=== PATIENT | female | born 1990 | race Caucasian/White ===

== ENCOUNTER 2018-07-13 06:00 | Inpatient (IN) ==
[2018-07-13] MEDS ORDERED: CALCIUM CARBONATE Chewable 500mg TABLET PO PRN ×2 (06:06→15:06)
[2018-07-13] MEDS ORDERED: SALINE FLUSH 10ml SYRINGE IV PRN (06:06)
[2018-07-13] MEDS ORDERED: OXYTOCIN DRIP 30 UNIT/500 ML ML IV PRN (06:06)
[2018-07-13] MEDS ORDERED: METHYLERGONOVINE 0.2 MG/ML INJECTION IM PRN (06:06)
[2018-07-13] MEDS ORDERED: MAG-AL + SIM ORAL LIQUID 30ml PO PRN ×2 (06:06→15:06)
[2018-07-13] MEDS ORDERED: CARBOPROST 250 MCG/ML INJECTION IM PRN (06:06)
[2018-07-13] MEDS ORDERED: D5LR 1,000 ML IV PRN (06:06)
[2018-07-13] MEDS ORDERED: LIDOCAINE 1% (10mg/ml) 2mL INJ PF SDV ID PRN (06:06)
[2018-07-13] MEDS ORDERED: ACETAMINOPHEN 500 MG TABLET PO PRN (06:06)
--- OUTSIDE RECORDS SUMMARY | 2018-07-13 06:14 | External Medical Summary | Continuity of Care Document ---
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 exam (general) - (routine) w/o 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 Abnormal glucose complicating - Encounter for suprvsn of normal - , third trimester 30 weeks gestation of - Encntr screen for infections w sexl - mode of transmiss Encounter for screening for oth - infec/parastc diseases Encounter for suprvsn of normal - , first trimester Encounter For Other Specified - Screening 10 weeks gestation of - Supervision of other high risk - pregnancies, second trimester Partial Placenta Previa Nos Or W/out - Hemorrhage, Second Trimester 24 weeks gestation of - Partial Placenta Previa Nos Or W/out - Hemorrhage, Second Trimester 28 weeks gestation of - Partial Placenta Previa Nos Or W/out - Hemorrhage, Second Trimester Encounter for suprvsn of normal - , second trimester 20 weeks gestation of - Abnormal glucose complicating - Encounter for suprvsn of normal - , third trimester 32 weeks gestation of - Abnormal glucose complicating - Pap Smear Screening, Cervix - Encounter for removal of intrauterine - contraceptive device Encounter for insertion of intrauterine contraceptive device Encounter for insertion of - intrauterine contraceptive device Encounter for routine checking of intrauterine contracep dev Encounter for routine checking of intrauterine contracep dev Encounter for suprvsn of normal - , second trimester 14 weeks gestation of - Encounter for suprvsn of normal - , second trimester 20 weeks gestation of - Encounter for suprvsn of normal - , third trimester 28 weeks gestation of - Dysuria - Active Active Procedures Procedure Date OB Visit No Charge Results Test Name Date and Time Measure Units Reference Range Abnormal Flag Comments Unknown Advance Directives Directive Yes / No Effective Date File Name Unknown Encounters Encounter Practice Location Reason(s) Diagnoses Date Provider Care Team Description For Visit Members [facility] Abnormal glucose Merritt Referring In Womens complicating 9-201 Stella. Provider: judi KhalilEncadria 8 700 Stella [address] r for suprvsn of Medical Merritt L, 1522, normal , Center [address] [place] [address], third [id number] Vel Kauffman, weeks gestation 120, [place] [id number], of Kulwinder [facility] 120, [place] Kulwinder COOL, tel:[phone], [facility] , [place]. [id number]. tel: tel:[phone] [facility] Abnormal glucose Merritt Referring In Womens complicating 5-201 Stella. Provider: judi hKalilEncadria 8 700 Stella PO Box r for suprvsn of Medical Merritt L, 1522, normal , Center [address] [place], third [id number] Vel Kauffman, weeks gestation 120, [place] [id number], of Kulwinder [facility] 120, [place] Kulwinder COOL, tel:+ [phone] [place], , [place]. [id number]. tel: tel:[phone] [facility] Abnormal glucose Pradip-1 Merritt Referring In Womens complicating 3-201 Stella. Provider: Health CHAMP, 8 700 Stella PO Box Medical Merritt L, 1522, Center [facility] [place], , [facility] [place], 120, Center [id number], Kulwinder, [facility] 120, [place] Kulwinder CO[place], tel:[phone], , [place]. [id number]. tel: tel:[phone] Emilie Miramontes Encounter for Pradip-1 Merritt Referring In Womens suprvsn of normal 1-201 Stella. Provider: Health CHAMP, , third 8 700 Stella PO Box [email or web address] weeks Medical Merritt L, 1522, gestation of Center [address] [place] [address], [address], 120, Center [id number], Kulwinder [facility] 120, [place] Kulwinder COOL, tel:+ [phone] CT, , [place]. [id number]. tel: tel:[phone] Emilie Miramontes Partial Placenta Pradip-1 Merritt Referring In Womens Ultrasound Previa Nos Or 1-201 Stella. Provider: Health CHAMP, W/out Hemorrhage, 8 700 Stella PO Box Second Medical Merritt L, 1522, [id number] weeks Center [address] [place] [address], gestation of , Vel COOL, 120, Center [id number], Kulwinder [facility] 120, [place] Kulwinder COOL, tel:+ [phone] [place], , [place]. [id number]. tel: tel:[phone] Emilie Miramontes Supervision of March- Merritt Referring In Womens other high risk 8-201 Stella. Provider: Health CHAMP, pregnancies, 8 700 Stella PO Box second Medical Merritt L, 1522, trimesterPartial Center [address] [place], [place] [address]ta, Placenta Previa Vel Kauffman, Nos Or W/out 120, Center [id number], Hemorrhage, Kulwinder, [facility] 120, [place] Second Kulwinder COOL, tel:+ [phone] CT, gestation of , [place]. [id number]. tel: tel:[phone] Emilie Miramontes Partial Placenta Apr-1 Merritt Referring In Womens Previa Nos Or 6-201 Stella. Provider: Jose OAKES, W/out Hemorrhage, 8 700 Stella PO Box Second Medical Merritt L, 1522, TrimesterEncounte Center [address] [place] [address], r for suprvsn of Vel Kauffman, normal , 120, Center [id number], second Miramontes, [facility] 120, [place] [email or web address] weeks Kulwinder COOL, tel: gestation of [phone] CT, , [place]. [id number]. tel: tel:[phone] Emilie Miramontes Encounter for Apr-1 Merritt Referring In Womens Ultrasound suprvsn of normal 6-201 Stella. Provider: Jose OAKES, , second 8 700 Stella PO Box [email or web address] weeks Medical Merritt L, 1522, gestation of Center [address] [place] [address], [address], 120, [place] [id number], [facility], [place] Kulwinder COOL, tel:[phone] CT, , [place]. [id number]. tel: tel:[phone] Emilie Miramontes Encounter for Mar-0 Merritt Referring In Womens suprvsn of normal 5-201 Stella. Provider: Jose OAKES, , second 8 700 Stella PO Box [email or web address] weeks Medical Merritt L, 1522, gestation of Center [address] [place] [address], Vel Kauffman, 120, [place] [id number], Kulwinder [facility] 120, [place] Kulwinder COOL, tel:[phone] CT, , [place]. [id number]. tel: tel:[phone] Emilie Miramontes Encntr screen for Feb-0 Merritt Referring In Womens infections w sexl 5-201 Stella. Provider: Jose OAKES, mode of 8 700 Stella PO Box transmissEncounte Medical Merritt L, 1522, r for screening Center [address] [place] [address], for oth , [facility], infec/parastc 120, Center [id number], diseasesEncounter Kulwinder, [facility] 120, [place] for suprvsn of Kulwinder COOL, tel:[phone] normal , [phone] CT, first , [place]. [id number]. 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 Provider: Health PA, (routine) w/o abn 7 700 Stella PO Box findingsPap Smear Medical Merritt L, 1522, Screening, Center [address] [place] [address], CervixEnccassieer , [facility], for removal of 120, Center , [facility]ine [facility], [place] contraceptive Kulwinder COOL, tel:+ [phone] CT, , [place]. [id number]. tel: tel:[phone] Emilie Miramontes Encounter for Aug-2 Merritt Referring In Womens routine checking 6-201 Stella. Provider: Health CHAMP, of intrauterine 6 700 Stella PO Box contracep dev [place] Bang L, 1522, Center [facility] [address], [facility], 120, Center [id number], [facility] 120, [place] Kulwinder COOL, tel:+ [phone] [place], , [place]. [id number]. tel: tel:[phone] Emilie Miramontes Encounter for Mar-2 Liang Referring In Womens routine checking 8-201 Elina. Provider: Health CHAMP, of intrauterine 6 700 Stella PO Box contracep dev Sweet[place] Bang L, 1522, Center [facility] [address], [facility], 120, Center [id number] [facility] 120, [place] Kulwinder COOL, tel:[phone], , [place]. [id number]. tel: tel:[phone] Miramontes Encounter for Mar-2 Liang Referring In Womens Ultrasound insertion of 8-201 Elina. Provider: Jose OAKES, intrauterine 6 700 Stella PO Box contraceptive Medical Merritt L, 1522, device Center [address], [facility] [place], 120, Center [id number], Kulwinder, [facility] 120, [place] Kulwinder COOL, tel:[phone] [place], , [place]. [id number]. tel: tel:[phone] Emilie Miramontes Encounter for Mar-2 Liang Referring In Womens insertion of 2-201 Elina. Provider: Jose OAKES, intrauterine 6 700 Stella PO Box contraceptive Medical Merritt L, 1522, device Center [facility] [address], [facility] [place], 120, Center [id number], Kulwinder, [facility] 120, [place] Kulwinder COOL, tel:[phone], , [place]. [id number]. tel: tel:[phone] Miramontes Dec-2 Merritt Referring In Womens 5-201 Stella. Provider: Jose OAKES, 5 700 Stella PO Box Medical Merritt L, 1522, Center [address], [facility] [place], 120, Center [id number], Kulwinder, [facility] 120, [place] Kulwinder COOL, tel:[phone], , [place]. [id number]. tel: tel:[phone] Miramontes Aug- Merritt Referring In Womens 4-201 Stella. Provider: Jose OAKES, 4 700 Stella PO Box Medical Merritt L, 1522, Center [address], [facility] [place], 120, Center [id number], Kulwinder, [facility] 120, [place] Kulwinder COOL, tel:[phone], , [place]. [id number]. tel: tel:[phone] Miramontes Aug-0 Liang In Womens 1-200 Elina. Jose OAKES, 8 700 PO Box Medical 1522, Center Dr Wai, [facility] [place], 120, [id number] Ramirez, [place], tel:[phone] , . tel:[phone] Family History Family Member Diagnosis Age At Onset No family history of Epilepsy No family history of Osteoporosis No family history of Hypertension No family history of Breast Cancer No family history of Ovarian Cancer No family history of Cardiovascular Disease No family history of Lung Disease No family history of Colon Cancer No family history of Kidney Problems No family history of Stroke No family history of Diabetes No family history of Thyroid Disorder Immunizations Vaccine Date Status Comments Tdap completed Source: New Immunization Record Influenza, seasonal, injectable, completed Source: New Immunization Record preservative free, 3 yrs or older Payers Payer name Insurance type Covered libertarian ID Authorization(s) [facility] [id number] [facility] [id number] [facility] [id number] Social History Type Description Quantity Date Captured Alcohol Use Details No Caffeine Use Details Unknown Tobacco Use Status Unknown Smoking Status Never smoker Vital Signs Date / Height Weight BMI Pulse Blood Temperature Respiratory Body Head BMI Time: Rate Pressure Rate Surface Circumference percentile Area 169.30 28.1 / lbs 7 mm[Hg] 1:36 kg/m PM eter (2) Chief Complaint And Reason For Visit Unknown Chief Complaint And Reason For Visit Reason For Referral Reason For Referral Unknown Plan Of Care Date Type Action Status Appointment Jaqueline Flannery BOOKED Future Order: Radiology Order Ultrasound OB Follow-up ([id number]) Ordered Future Order: Radiology Order Pelvic Ultrasound ([id number]) Ordered Future Order: Radiology Order Complete OB Ultrasound > 14 Weeks Ordered ([id number]) Date Type Problem Goal Intervention Status Start Date Unknown. History Of Present Illness Encounter Date Complaint History Of Present Illness This patient has no known history of present illness Functional Status Encounter Date Functional Assessment Cognitive Assessment Unknown Medications Administered Medication Instructions Dosage Effective Dates (start - stop) Status Comments Drug Treatment Unknown Instructions Date Instruction Additional Information smoking counseling domestic violence seat belt use childbirth classes / hospital facilities hospital registration genetic testing Zika virus assessment & precautions HIV and other routine tests risk factors identified by history anticipated course of care nutrition and weight gain counseling, special diet toxoplasmosis precautions (cats / raw meat) sexual activity exercise indications for ultrasound influenza vaccine environmental / work hazards travel tobacco (ask, advise, assess, assist and arrange) alcohol illicit / recreational drugs use of any medications (including supplements, vitamins, herbs, OTC drugs)
--- OUTSIDE RECORDS SUMMARY | 2018-07-13 06:14 | External Medical Summary | Summary of Care ---
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 Quantity: 1 Refills: 0 Taty Powell APRN Start : 05-Jul-2017 Active 15 GM Tube Allergies and Adverse Reactions Name Dates Details No Known Drug Allergies (Allergy) Status: Active Procedures Procedure Dates Details Procedures not documented Immunization Name Dates Details Immunizations not documented Social History Smoking Status Name Dates Details Unknown if ever smoked Vital Signs Date Test Result Details No Known Vitals to report Results Date Description Value Details Results not documented Plan of Care Name Dates Details Planned Observations Planned Goals not documented Interventions Provided Medication ChangesPredniSONE 20 MG Oral Tablet - StartTriamcinolone Acetonide 0.5 % External Cream - Start Instructions Name Dates Details Instructions not documented Encounters Appointment; Taty Powell A.P.R.N. On: 05-Jul-2017 10:19 Encounter Diagnosis: Problem not documented
--- OUTSIDE RECORDS SUMMARY | 2018-07-13 06:14 | External Medical Summary | Continuity of Care Document ---
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 Provider: [facility] 8 700 Stella PO Box r for suprvsn of Medical [facility], 152, normal , [address], third [id number] Dr [facility], weeks gestation 120, Center [id number], [facility] 120, [place] Kulwinder COOL, tel:[phone] [place], [address] , [place]. [id number]. tel: tel:[phone] Emilie Miramontes Abnormal glucose Merritt Referring In Womens complicating 9-201 Stella. Provider: Jose [facility]AKES [facility] 8 700 Stella PO Box r for suprvsn of Medical [facility] L, 1522, normal , Center [address] [place], third [id number] Dr [facility] Sweetie COOL, weeks gestation 120, Center [id number], of [place], [facility] 120, [place] Kulwinder [place], tel:[phone] [place], , [place]. [id number]. tel: tel:[phone] Associates Kulwinder Abnormal glucose Pradip-2 Merritt Referring In Womens complicating 5-201 Stella. Provider: Jose OAKES, pregnancyEncounte 8 700 Stella PO Box r for suprvsn of Medical [place] L, 1522, normal , Center 700 [place], third [id number] Vel Kauffman, weeks gestation 120, [place] , of [place], [facility] 120, [place] K[place]winder [place], tel:[phone] [place], , [place]. [id number]. tel: tel:[phone] Associates ISIDORO Avila Abnormal glucose Pradip-1 Merritt Referring In Womens complicating 3-201 Stella. Provider: Jose OAKES, 8 700 Stella PO Box Medical [place] L, 1522, Center [facility] Wai, Dr Vel Sweetie [place], 120, [place] [id number], Kulwinder, [facility] 120, [place]inder [place], tel:[phone] [place], , [place]. [id number]. tel: tel:[phone] Emilie Miramontes Encounter for Pradip-1 Merritt Referring In Womens suprvsn of normal 1-201 Stella. Provider: Jose OAKES, , third 8 700 Stella PO Box [id number] weeks Medical [place] L, 1522, gestation of Center [address] [place], Vel [place]ffman [place], 120, [place] [id number], Kulwinder, [facility] 120, [place]inder [place], tel:[phone] [place], , [place]. [id number]. tel: tel:[phone] Emilie Miramontes Partial Placenta Pradip-1 Merritt Referring In Womens Ultrasound Previa Nos Or 1-201 Stella. Provider: Jose OAKES, W/out Hemorrhage, 8 700 Stella PO Box Second Medical [place] L, 1522, [id number] weeks [facility], gestation of Vel [place]ff[place], 120, Center [id number], Kulwinder [facility] 120, [place] K[place]inder [place], tel:[phone] [place], , [place]. [id number]. tel: tel:[phone] Emilie Miramontes Supervision of March- Merritt Referring In Womens other high risk 8-201 Stella. Provider: Health PA, pregnancies, 8 700 Stella PO Box second Medical [place] L, 1522, trimesterPartial Center [address] [place] [address], Placenta Previa Vel Kauffman, Nos Or W/out 120, Center [id number], Hemorrhage, Kulwinder [facility] 120, [place] Second Kulwinder COOL, tel:+ [id number] weeks [phone] [place], gestation of , [place]. [id number]. tel: tel:[phone] Emilie Miramontes Partial Placenta Feb-1 Merritt Referring In Womens Previa Nos Or 6-201 Stella. Provider: Health PA, W/out Hemorrhage, 8 700 Stella PO Box Second Medical [place] L, 1522, TrimesterEncounte Center [address] [place] [address], r for suprvsn of Vel Kauffman, normal , 120, Center [id number], second Vel [place] 120, [place] [id number] weeks Kulwinder COOL, tel:+ gestation of [phone] [place], , [place]. [id number]. tel: tel:[phone] Emilie Miramontes Encounter for Apr-1 Merritt Referring In Womens Ultrasound suprvsn of normal 6-201 Stella. Provider: Health PA, , second 8 700 Stella PO Box [id number] weeks Medical [place] L, 1522, gestation of Center [address] [place] [address], Vel Kauffman, 120, Center [id number], Kulwinder [facility] 120, [place] Kulwinder [place], tel:[phone] [place], , [place]. [id number]. tel: tel:[phone] Emilie Miramontes Encounter for Mar-0 Merritt Referring In Womens suprvsn of normal 5-201 Stella. Provider: Jose OAKES, , second 8 700 Stella PO Box weeks Sweetie Wright, 1522, gestation of Center [address] [place] [address], Dr, [facility], 120, Center [id number], [facility] 120, [place] K[place]inder [place], tel:[phone] [place], , [place]. [id number]. tel: tel:[phone] Emilie Miramontes Encntr screen for Feb-0 Merritt Referring In Womens infections w sexl 5-201 Stella. Provider: Jose OAKES, mode of 8 700 Stella PO Box transmissEncounte Sweetie Bang L, 1522, r for screening Center [address] [place] [address], for oth , [facility], infec/parastc 120, [place] [id number], diseasesEncounter [facility], [place] for suprvsn of Kulwinder COOL, tel:[phone] normal , [phone] [place], first , [place]. [id number]. 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 Provider: Jose OAKES, (routine) w/o abn 7 700 Stella PO Box findingsPap Smear Sweetie Wright, 1522, Screening, [address], CervixEncounter , [facility], for removal of 120, [place] [id number], [facility]uterine [facility] 120, [place] contraceptive Kulwinder COOL, tel:[phone] [place], , [place]. [id number]. tel: tel:[phone] Emilie Miramontes Encounter for Aug-2 Merritt Referring In Womens routine checking 6-201 Stella. Provider: Jose OAKES, of intrauterine 6 700 Stella PO Box contracep dev Sweetie Wright, 1522, Center [facility] Wai, , Vel Medical [place], 120, Center [id number], Kulwinder, [facility] 120, [place] Kulwinder [place], tel:[phone] [place], , [place]. [id number]. tel: tel:[phone] Emilie Miramontes Encounter for Mar-2 Liang Referring In Womens routine checking 8-201 Elina. Provider: Jose OAKES, of intrauterine 6 700 Stella PO Box contracep dev Medical [place] L, 1522, Center [address], [facility] [place], 120, Center [id number], Kulwinder, [facility] 120, [place] Kulwinder [place], tel:[phone] [place], , [place]. [id number]. tel: tel:[phone] Miramontes Encounter for Mar-2 Liang Referring In Womens Ultrasound insertion of 8-201 Elina. Provider: Jose OAKES, intrauterine 6 700 Stella PO Box contraceptive Medical [place] L, 1522, device Center [address] Dr Wai, [facility] [place], 120, Center [id number], Kulwinder, [facility] 120, [place] Kulwinder [place], tel:[phone] [place], , [place]. [id number]. tel: tel:[phone] Miramontes Encounter for Mar-2 Liang Referring In Womens insertion of 2-201 Elina. Provider: Jose OAKES, intrauterine 6 700 Stella PO Box contraceptive Medical [place] L, 1522, device Center [address] Dr Wai, [facility] [place], 120, Center [id number], Kulwinder, [facility] 120, [place] Kulwinder [place], tel:[phone] [place], , [place]. [id number]. tel: tel:[phone] Miramontes Feb-2 Merritt Referring In Womens 5-201 Stella. Provider: Jose OAKES, 5 700 Stella PO Box Medical [place] L, 1522, Center [address], [facility] [place], 120, Center [id number], Kulwinder, [facility] 120, [place] Kulwinder [place], tel:[phone] [place], , [place]. [id number]. tel: tel: [phone] Associates Kulwinder Merritt Referring In Womens 4-201 Stella. Provider: Health CHAMP, 4 700 Stella PO Box Medical [place] L, 1522, Center [address] Dr Wai, [facility] Medical [place], 120, [place] [id number], [place], [place] [address], [place], Kulwinder, tel: [phone] [place], [facility]. [id number]. tel: tel:+ [phone] Emilie Miramontes Jun-0 Liang In Womens 1-200 Elina. [facility], 8 700 PO Box Medical 1522, [place] Dr Wai, [facility] [place], 120, [id number], [place], [place], tel: [phone] , . tel: [phone] Family History Family Member Diagnosis Age At [...] older Payers Payer name Insurance type Covered green party ID Authorization(s) [facility] [id number] [facility] [id number] [facility] [id number] Social History Type Description Quantity Date Captured Alcohol Use Details No Caffeine Use Details Unknown Tobacco Use Status Unknown Smoking Status Never smoker Vital Signs Date / Height Weight BMI Pulse Blood Temperature Respiratory Body Head BMI Time: Rate Pressure Rate Surface Circumference percentile Area 173.70 28.9 110/65 -2018 lbs 0 mm[Hg] 3:21 kg/m PM eter (2) 28. 7 3:05 kg/m PM eter (2) 173.70 lbs 0 3:20 kg/m PM eter (2) Chief Complaint And Reason For Visit Unknown Chief Complaint And Reason For Visit Reason For Referral Reason For Referral Unknown Plan Of Care Date Type Action Status Appointment Jaqueline Flannery BOOKED Future Order: Radiology Order Ultrasound OB Follow-up ([id number]) Ordered Future Order: Radiology Order Pelvic Ultrasound ([id number]) Ordered Future Order: Radiology Order Complete OB Ultrasound > 14 Weeks Ordered ([id number]) Date Type Problem Goal Intervention Status Start [...]
--- OUTSIDE RECORDS SUMMARY | 2018-07-13 06:14 | External Medical Summary | Continuity of Care Document ---
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 Abnormal glucose complicating - Encounter for suprvsn of normal - , third trimester 34 weeks gestation of - Encntr screen for [...] suprvsn of normal - , third trimester 37 weeks gestation of - Abnormal glucose complicating - Encounter for suprvsn of normal - , third trimester 30 weeks gestation of - Abnormal glucose complicating - Encounter for suprvsn of normal - , third trimester 32 weeks gestation of - Abnormal glucose complicating - Abnormal glucose complicating - Encounter for suprvsn of normal - , third trimester Encounter For Screening For - Streptococcus B 36 weeks gestation of - Pap Smear Screening, [...] Womens complicating 3-201 Stella. Provider: Health CHAMP, pregnancyEncounte 8 700 Stella PO Box r for suprvsn of Medical [place] L, 1522, normal , Center 700 [place], third [id number] Vel Kauffman Medical [place], weeks gestation 120, Center [id number], of Kulwinder, [facility] 120, [place] Kulwinder COOL, tel:[phone] [place], , [place]. [id number]. tel: tel:[phone] Associates K[facility]inder Abnormal glucose Aug-0 Merritt Referring In Womens complicating 6-201 Stella. Provider: Jose OAKES pregnancyEncounte 8 700 Stella PO Box r for suprvsn of Medical [place] L, 1522, normal , Center 700 [place], third Dr [facility] [place], trimesterEncounte 120, Center [id number], r For [facility] 120, [place] Screening For Kulwinder COOL, tel:+ [phone] [place], weeks gestation , [place]. [id number]. of tel: tel:[phone] Associates Kul[facility]inder Abnormal glucose Dinh-2 Merritt Referring In Womens complicating 3-201 Stella. Provider: [facility] 8 700 Stella PO Box r for suprvsn of Medical [place] L, 1522, normal , Center [address] [place] [address], third [id number] Dr [facility] [place], weeks gestation 120, Center [id number], of [facility] 120, [place] Kulwinder COOL, tel:[phone] [place], , [place]. [id number]. tel: tel:[phone] Associates Kulwinder Abnormal glucose Dinh-0 Merritt Referring In Womens complicating 9-201 Stella. Provider: Jose OAKES pregnancyEncounte 8 700 Stella PO Box r for suprvsn of Medical [place] L, 1522, normal , Center [address] [place] [address], third [id number] Dr [facility] Sweetie COOL, weeks gestation 120, Center [id number], of [facility] 120, [place] Kulwinder CO[place], tel:[phone] [place], , [place]. [id number]. tel: tel:[phone] Associates K[facility]winder Abnormal glucose Pradip-2 Merritt Referring In Womens complicating 5-201 Stella. Provider: Jose OAKES pregnancyEncounte 8 700 Stella PO Box r for suprvsn of Medical [place] L, 1522, normal , Center [address] [place] [address], third [id number] Dr [facility] [place], weeks gestation 120, Center , of Kulwinder [facility] 120, [place] Kulwinder COOL, tel:+ [phone] [place], , [place]. [id number]. tel: tel:[phone] Associates MAHENDRA [place] Abnormal glucose Pradip-1 Merritt Referring In Womens complicating 3-201 Stella. Provider: Jose OAKES, 8 700 Stella PO Box Medical [place] L, 1522, Center [address] [place] [address], , [facility] [place], 120, Center [id number], Kulwinder [facility] 120, [place] Kulwinder CO[place], tel:[phone] [place], , [place]. [id number]. tel: tel:[phone] Emilie Miramontes Encounter for Pradip-1 Merritt Referring In Womens suprvsn of normal 1-201 Stella. Provider: Jose OAKES, , third 8 700 Stella PO Box [id number] weeks Medical [place] L, 1522, gestation of Center [address] [place] [address], Dr [facility] [place], 120, [place] [id number], Kulwinder [facility] 120, [place] Kulwinder CO[place], tel: [phone] [place], , [place]. [id number]. tel: tel:[phone] Emilie Miramontes Partial Placenta Pradip-1 Merritt Referring In Womens Ultrasound Previa Nos Or 1-201 Stella. Provider: Jose OAKES, W/out Hemorrhage, 8 700 Stella PO Box Second Medical [place] L, 1522, [id number] weeks Center [address] [place] [address], gestation of Vel Kauffman, 120, Center [id number], Kulwinder [facility] 120, [place] Kulwinder COOL, tel: [phone] [place], , [place]. [id number]. tel: tel:[phone] Emilie Miramontes Supervision of March- Merritt Referring In Womens other high risk 8-201 Stella. Provider: Jose OAKES, pregnancies, 8 700 Stella PO Box second Medical [place] L, 1522, trimesterPartial Center [address] [place] [address], Placenta Previa Vel Kauffman, Nos Or W/out 120, Center [id number], Hemorrhage, Kulwinder [facility] 120, [place] Second Kulwinder COOL, tel:+[phone] [id number] weeks [phone] [place], gestation of , [place]. [id number]. tel: tel:[phone] Emilie Miramontes Partial Placenta Apr-1 Merritt Referring In Womens Previa Nos Or 6-201 Stella. Provider: Health CHAMP, W/out Hemorrhage, 8 700 Stella PO Box Second Medical [place] L, 1522, TrimesterEncounte Center [address] [place] [address], r for suprvsn of Vel K[place], normal , 120, Center [id number], second Kulwinder [facility] 120, US [id number] weeks Kulwinder COOL, tel:+ gestation of [place], , [place]. [id number]. tel: tel:[phone] Emilie Miramontes Encounter for Apr-1 Merritt Referring In Womens Ultrasound suprvsn of normal 6-201 Stella. Provider: Jose OAKES, , second 8 700 Stella PO Box [id number] weeks Medical Merr[place] L, 1522, gestation of [address], Vel Kauffman, 120, Center [id number], Kulwinder [facility] 120, [place] Kulwinder COOL, tel:[phone] [place], , [place]. [id number]. tel: tel:[phone] Emilie Miramontes Encounter for Mar-0 Merritt Referring In Womens suprvsn of normal 5-201 Stella. Provider: Health CHAMP, , second 8 700 Stella PO Box [email or web address] weeks Medical [place] L, 1522, gestation of [address], Vel Kauffman, 120, Center [id number], Kulwinder [facility] 120, [place] Kulwinder COOL, tel:[phone] [place], , [place]. [id number]. tel: tel:+ [phone] Emilie Miramontes Encntr screen for Feb-0 Merritt Referring In Womens infections w sexl 5-201 Stella. Provider: Jose OAKES, mode of 8 700 Stella PO Box transmissEncounte Medical [place] L, 1522, r for screening Center [address] [place] [address], for oth , [facility], infec/parastc 120, Center [id number], diseasesEncounter Kulwinder, [facility] 120, [place] for suprvsn of Kulwinder COOL, tel:[phone] normal , [phone] [place], first , [place]. [id number]. 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 Provider: Jose OAKES, (routine) w/o abn 7 700 Stella PO Box findingsPap Smear Medical Merritt L, 1522, Screening, Center [address] [place] [address], CervixEncsam Kauffman, [facility], for removal of 120, [place] [id number], intrauterine Kulwinder, [facility] 120, [place] contraceptive Kulwinder COOL, tel: device [phone] [place], , [place]. [id number]. tel: tel:[phone] Emilie Miramontes Encounter for Aug-2 Merritt Referring In Womens routine checking 6-201 Stella. Provider: oJse OAKES, of intrauterine 6 700 Stella PO Box contracep dev Sweetie Bang L, 1522, Center [address] Dr Wai, [facility], 120, [place] [id number], [facility] 120, [place] Kulwinder CO[place], tel:[phone] [place], , [place]. [id number]. tel: tel:[phone] Emilie Miramontes Encounter for Mar-2 Liang Referring In Womens routine checking 8-201 Elina. Provider: Jose OAKES, of intrauterine 6 700 Stella PO Box contracep dev Sweetie Wright, 1522, Center [facility] Dr Wai, [facility], 120, [place] [id number], [facility] 120, [place] Kulwinder COOL, tel:[phone] [place], , [place]. [id number]. tel: tel:[phone] Emilie Miramontes Encounter for Mar-2 Liang Referring In Womens Ultrasound insertion of 8-201 Elina. Provider: Health CHAMP, intrauterine 6 700 Stella PO Box contraceptive Medical [place] L, 1522, device Center [address] Dr Wai, [facility] [place], 120, Center [id number], Kulwinder, [facility] 120, [place] Kulwinder COOL, tel:[phone] [place], , [place]. [id number]. tel: tel:[phone] Emilie Miramontes Encounter for Mar-2 Liang Referring In Womens insertion of 2-201 Elina. Provider: Health CHAMP, intrauterine 6 700 Stella PO Box contraceptive Medical [place] L, 1522, device Center [address] Dr Wai, [facility] [place], 120, Center [id number], Kulwinder, [facility] 120, [place] Kulwinder COOL, tel:[phone] [place], , [place]. [id number]. tel: tel:[phone] Emilie Miramontes Dec- Merritt Referring In Womens 5-201 Stella. Provider: Health CHAMP, 5 700 Stella PO Box Medical [place] L, 1522, Center [address], [facility] [place], 120, Center [id number], Kulwinder, [facility] 120, [place] Kulwinder COOL, tel:[phone] [place], , [place]. [id number]. tel: tel:[phone] Emilie Miramontes Aug- Merritt Referring In Womens 4-201 Stella. Provider: Health CHAMP, 4 700 Stella PO Box Medical [place] L, 1522, Center [address], [facility] [place], 120, Center [id number], Kulwinder, [facility] 120, [place] Kulwinder COOL, tel:[phone] [place], , [place]. [id number]. tel: tel:[phone] Emilie Miramontes Liang In Womens 1-200 [facility], 8 700 [facility] 1522, [place] [address] [place], [facility] [place], 120, [id number], [place], [place], tel:[phone] , [place]. tel: [phone] Family History Family Member Diagnosis Age At [...] Comments Tdap completed Source: New Immunization Record Tdap completed Source: New Immunization Record Influenza, seasonal, injectable, completed Source: New Immunization Record preservative free, 3 yrs or older Payers Payer name Insurance type Covered libertarian ID Authorization(s) [facility] [id number] [facility] [id number] [facility] [id number] [facility] [id number] Social History Type Description Quantity Date Captured Alcohol Use Details No Caffeine Use Details Unknown Tobacco Use Status Unknown Smoking Status Never smoker Vital Signs Date / Height Weight BMI Pulse Blood Temperature Respiratory Body Head BMI Time: Rate Pressure Rate Surface Circumference percentile Area 176.10 29.3 131/70 2018 lbs 0 mm[Hg] 3:08 kg/m PM eter (2) Chief Complaint And Reason For Visit Unknown Chief Complaint And Reason For Visit Reason For Referral Reason For Referral Unknown Plan Of Care Date Type Action Status Appointment Jaqueline Flannery BOOKED Future Order: Radiology Order Ultrasound OB Follow-up ([id number]) Ordered Future Order: Radiology Order Pelvic Ultrasound ([id number]) Ordered Future Order: Radiology Order Complete OB Ultrasound > 14 Weeks Ordered ([id number]) Date Type Problem Goal Intervention Status Start [...]
--- OUTSIDE RECORDS SUMMARY | 2018-07-13 06:14 | External Medical Summary | Continuity of Care Document ---
:1990 Author Organization [email or web address] Address [address] [place] [phone] Phone Support Name Relationship Address Phone Serg Flannery spouse [phone] Walsh [phone] [place] [address] Allergies, Adverse Reactions, Alerts Substance Reaction Severity Status No Known Drug Allergies Unknown Active Medications Medication Instructions Dosage Effective Dates Status Comments (start - stop) Vitamin take 1 tablet by Not Available - Active 27 mg iron-0.8 mg oral route every tablet day Problems Condition Effective Dates (start - stop) Clinical Status 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) w/o 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 Encounter for suprvsn of normal - , second trimester 14 weeks gestation of - Encntr screen for infections w sexl - mode of transmiss Encounter for screening for oth - infec/parastc diseases Encounter for suprvsn of normal - , first trimester Encounter For Other Specified - Screening 10 weeks gestation of - Pap Smear Screening, Cervix - Encounter for removal of intrauterine - contraceptive device Encounter for insertion of intrauterine contraceptive device Encounter for insertion of - intrauterine contraceptive device Encounter for routine checking of intrauterine contracep dev Encounter for routine checking of intrauterine contracep dev Dysuria - Active Active Procedures Procedure Date OB Visit No Charge Results Test Name Date and Time Measure Units Reference Range Abnormal Flag Comments Unknown Advance Directives Directive Yes / No Effective Date File Name Unknown Encounters Encounter Practice Location Reason(s) Diagnoses Date Provider Care Team Description For Visit Members Emilie Miramontes Encounter for Mar-0 Merritt Referring In Womens suprvsn of normal 5-201 Stella. Provider: Jose OAKES, , second 8 700 Stella [address] [id number] weeks Medical Merritt Wright, 1522, gestation of Center [address] [place] [address], Dr, [facility], 120, Center [id number], Kulwinder [facility] 120, [place] Kulwinder COOL, tel:[phone] [place], , [place]. [id number]. tel: tel:[phone] Emilie Miramontes Encntr screen for Dec- Merritt Referring In Womens infections w sexl 5-201 Stella. Provider: Jose OAKES, mode of 8 700 Stella PO Box transmissEncounte Sweetie Wright, 1522, r for screening Center [address] [place] [address], for oth , [facility], infec/parastc 120, [place] [id number], diseases[facility], [place] for suprvsn of Kulwinder COOL, tel:[phone] normal , [phone] [place], first , [place]. [id number]. 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 Provider: Jose OAKES, (routine) w/o abn 7 700 Stella PO Box findingsPap Smear Sweetie Bang L, 1522, Screening, [place] [id number] [place], CervixEncsam Kauffman, [facility], for removal of 120, [place] [id number], [facility], [place] contraceptive Kulwinder COOL, tel:[phone] [place], , [place]. [id number]. tel: tel:[phone] Emilie Miramontes Encounter for Jun- Merritt Referring In Womens routine checking 6-201 Stella. Provider: Jose OAKES, of intrauterine 6 700 Stella PO Box contracep dev Sweetie Wright, 1522, Center [facility] [place], , [facility], 120, Center [id number] Ramirez, [facility] 120, [place] Kulwinder [place], tel:[phone] [place], , [place]. [id number]. tel: tel:[phone] Emilie Miramontes Encounter for Mar-2 Liang Referring In Womens routine checking 8-201 Elina. Provider: Jose OAKES, of intrauterine 6 700 Stella PO Box contracep dev Medical Merritt L, 1522, Center [address] [place], [facility] [place], 120, Center [id number], Kulwinder, [facility] 120, [place] Kulwinder [place], tel:[phone] [place], , [place]. [id number]. tel: tel:[phone] Miramontes Encounter for Mar-2 Liang Referring In Womens Ultrasound insertion of 8-201 Elina. Provider: Jose OAKES, intrauterine 6 700 Stella PO Box contraceptive Medical Merritt L, 1522, device Center [address] [place], [facility], 120, Center [id number], [facility], [place] Kulwinder [place], tel:[phone] [place], , [place]. [id number]. tel: tel:[phone] Emilie Miramontes Encounter for Mar-2 Liang Referring In Womens insertion of 2-201 Elina. Provider: Jose OAKES, intrauterine 6 700 Stella PO Box contraceptive Medical Merritt L, 1522, device Center [address] [place], [facility] [place], 120, Center [id number], [facility], [place] Kulwinder [place], tel:[phone] [place], , [place]. [id number]. tel: tel:[phone] Emilie Miramontes Feb-2 Merritt Referring In Womens 5-201 Stella. Provider: Jose OAKES, 5 700 Stella PO Box Medical Merritt L, 1522, Center [address] [place], [facility] [place], 120, Center [id number], Kulwinder, [facility] 120, [place] Kulwinder [place], tel:[phone] [place], , [place]. [id number]. tel:[phone] tel: [phone] Emilie Miramontes Aug- Merritt Referring In Womens 4-201 Stella. Provider: [facility], 4 700 Stella PO Box Medical Merritt L, 1522, Center [address] [place], [facility] Medical [place], 120, [place] [address] [id number], Miramontes, [facility] 120, [place], Kulwinder, tel: [phone] [place], , . [id number]. tel: tel: [phone] Emilie Miramontes Jun-0 Liang In Womens 1-200 Elina. [facility], 8 700 PO Box Medical 1522, [place] [address] [place], [facility] [place], 120, [id number], Miramontes, [place], tel: [phone] , . tel: [phone] Family History Family Member Diagnosis Age At [...] older Payers Payer name Insurance type Covered democrat ID Authorization(s) [facility] [id number] [facility] [id number] [facility] [id number] Social History Type Description Quantity Date Captured Alcohol Use Details No Caffeine Use Details Unknown Tobacco Use Status Unknown Smoking Status Never smoker Vital Signs Date / Height Weight BMI Pulse Blood Temperature Respiratory Body Head BMI Time: Rate Pressure Rate Surface Circumference percentile Area Unknown Chief Complaint And Reason For Visit Unknown Chief Complaint And Reason For Visit Reason For Referral Reason For Referral Unknown Plan Of Care Date Type Action Status Appointment Jaqueline Flannery BOOKED Appointment Jaqueline Flannery BOOKED Future Order: Radiology Order Pelvic Ultrasound ([id number]) Ordered Date Type Problem Goal Intervention Status Start [...]
--- OUTSIDE RECORDS SUMMARY | 2018-07-13 06:15 | External Medical Summary | Continuity of Care Document ---
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0-46.6 11:27:00 MCV 87 fL 79-97 11:27:00 MCH 28.7 pg 26.6-33.0 11:27:00 MCHC 33.1 g/dL 31.5-35.7 11:27:00 RDW 14.7 % 12.3-15.4 11:27:00 Platelets 210 x10E3/uL 150-379 11:27:00 Neutrophils 74 % Not Estab. 11:27:00 Lymphs 17 % Not Estab. 11:27:00 Monocytes 5 % Not Estab. 11:27:00 Eos 1 % Not Estab. 11:27:00 Basos 1 % Not Estab. 11:27:00 Immature Cells 11:27:00 Neutrophils 8.1 x10E3/uL 1.4-7.0 H (Absolute) 11:27:00 Lymphs (Absolute) 1.9 x10E3/uL 0.7-3.1 11:27:00 Monocytes(Absolut 0.6 x10E3/uL 0.1-0.9 e) 11:27:00 Eos (Absolute) 0.1 x10E3/uL 0.0-0.4 11:27:00 Baso (Absolute) 0.1 x10E3/uL 0.0-0.2 11:27:00 Immature 2 % Not Estab. Granulocytes 11:27:00 Immature Grans 0.2 x10E3/uL 0.0-0.1 H (An elevated percentage (Abs) 11:27:00 of Immature Granulocytes has not been foundto be clinically significant as a sole clinical predictor of disease.Does NOT include bands or blast cells. associatedphysiological leukocytosis may also show increased immaturegranulocytes without clinical significance.) NRBC 11:27:00 Hematology Comments: 11:27:00 Panel Description: Glucose [Mass/volume] in Serum or Plasma --1 hour post 50 g glucose PO Gestational Diabetes Screen 11:27:00 140 mg/dL 65-135 H Advance Directives Directive Yes / No Effective Date File Name Unknown Encounters Encounter Practice Location Reason(s) Diagnoses Date Provider Care Team Description For Visit Members [facility] Abnormal glucose Merritt Referring In Womens complicating 5-201 Stella. Provider: Health [facility], pregnancyEncounte 8 700 Stella PO Box r for suprvsn of Sweetie Wright, 1522, normal , Center 700 [place], third , [facility] [place], weeks gestation 120, Center [id number], of Kulwinder, [facility] 120, [place] Kulwinder CO[place], tel:[phone] [place], [phone] , [place]. [id number]. tel: tel:[phone] [facility] Abnormal glucose Pradip-1 Merritt Referring In Womens complicating 3-201 Stella. Provider: Jose OAKES, 8 700 Stella PO Box Medical Merritt L, 1522, Center 700 [place], , Vel COOL, 120, Center , Kulwinder [facility] 120, [place] Kulwinder [place], tel:[phone] [place], , [place]. [id number]. tel: tel:[phone] [facility] Encounter for Pradip-1 Merritt Referring In Womens suprvsn of normal 1-201 Stella. Provider: Jose OAKES, , third 8 700 Stella PO Box [id number] weeks Medical Merritt L, 1522, gestation of Center [address] [place] [address], Vel [place], 120, Center [id number], Kulwinder [facility] 120, [place] Kulwinder [place], tel:[phone] [place], , [place]. [id number]. tel: tel:[phone] Emilie Miramontes Partial Placenta Pradip-1 Merritt Referring In Womens Ultrasound Previa Nos Or 1-201 Stella. Provider: Jose OAKES, W/out Hemorrhage, 8 700 Stella PO Box Second Medical Merritt L, 1522, [id number] weeks Center [address] [place] [address], gestation of Vel [place], 120, Center , Kulwinder [facility] 120, [place] Kulwinder [place], tel:[phone] [place], , [place]. [id number]. tel: tel:[phone] [facility] Supervision of March- Merritt Referring In Womens other high risk 8-201 Stella. Provider: Jose OAKES, pregnancies, 8 700 Stella PO Box second Medical Merritt L, 1522, trimesterPartial Center [address] [place] [address], Placenta Previa Vel K[place]ffman, Nos Or W/out 120, Center [id number], Hemorrhage, Kulwinder, [facility] 120, [place] Second Kulwinder COOL, tel:+ [phone] weeks [phone] [place], gestation of , [place]. [id number]. tel: tel:[phone] Emilie Miramontes Partial Placenta Apr-1 Merritt Referring In Womens Previa Nos Or 6-201 Stella. Provider: Jose OAKES, W/out Hemorrhage, 8 700 Stella PO Box Second Medical Merritt L, 1522, TrimesterEncounte Center [address] [place] [address], r for suprvsn of Vel [place], normal , 120, Center [id number], second Miramontes, [facility] 120, [place] [id number] weeks Kulwinder COOL, tel: gestation of [phone] [place], , [place]. [id number]. tel: tel:[phone] Emilie Miramontes Encounter for Apr-1 Merritt Referring In Womens Ultrasound suprvsn of normal 6-201 Stella. Provider: Jose OAKES, , second 8 700 Stella PO Box [id number] weeks Medical Merritt L, 1522, gestation of [address], Vel K[place]ffman, 120, Center [id number], Miramontes, [facility] 120, [place] Kulwinder CO[place], tel:[phone] [place], , [place]. [id number]. tel: tel:[phone] Emilie Miramontes Encounter for Mar-0 Merritt Referring In Womens suprvsn of normal 5-201 Stella. Provider: Jose OAKES, , second 8 700 Stella PO Box [id number] weeks Medical Merritt L, 1522, gestation of Center [address] [place] [address], Vel [place], 120, Center [id number], Kulwinder, [facility] 120, [place] Kulwinder [place], tel:[phone] [place], , [place]. [id number]. tel: tel:[phone] Emilie Miramontes Encntr screen for Feb-0 Merritt Referring In Womens infections w sexl 5-201 Stella. Provider: Jose OAKES, mode of 8 700 Stella PO Box transmissEncounte Medical Merritt L, 1522, r for screening [address], for oth , [facility], infec/parastc 120, Center [id number], diseasesEncounter Kulwinder, [facility] 120, [place] for suprvsn of Kulwinder COOL, tel:[phone] normal , [phone] [place], first , [place]. [id number]. 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 Provider: Health PA, (routine) w/o abn 7 700 Stella PO Box findingsPap Smear Sweetie Wright, 1522, Screening, Center [address] [place] [address], CervixEncsam Kauffman, [facility], for removal of 120, [place] [id number], intrauterine Kulwinder, [facility] 120, [place] contraceptive Kulwinder COOL, tel:[phone] [place], , [place]. [id number]. tel: tel:[phone] Emilie Miramontes Encounter for Aug-2 Merritt Referring In Womens routine checking 6-201 Stella. Provider: Health PA, of intrauterine 6 700 Stella PO Box contracep michaela Bang L, 1522, Center [facility] Dr Wai, [facility], 120, [place] [id number], Kulwinder [facility] 120, [place] Kulwinder [place], tel:[phone] [place], , [place]. [id number]. tel: tel:[phone] Miramontes Encounter for Mar-2 Liang Referring In Womens routine checking 8-201 Elina. Provider: Health [place], of intrauterine 6 700 Stella PO Box contracep michaela Bang L, 1522, Center [facility] Dr Wai, [facility], 120, [place] [id number], [facility] 120, [place] Kulwinder CO[place], tel:[phone] [place], , [place]. [id number]. tel: tel:[phone] Miramontes Encounter for Mar-2 Liang Referring In Womens Ultrasound insertion of 8-201 Elina. Provider: Jose OAKES, intrauterine 6 700 Stella PO Box contraceptive Medical Merritt L, 1522, device Center [address] [place], [facility] [place], 120, Center [id number], Kulwinder, [facility] 120, [place] Kulwinder CO[place], tel:[phone] [place], , [place]. [id number]. tel: tel:[phone] Emilie Miramontes Encounter for Jan-2 Liang Referring In Womens insertion of 2-201 Elina. Provider: Jose OAKES, intrauterine 6 700 Stella PO Box contraceptive Medical Merritt L, 1522, device Center [address] [place], [facility] [place], 120, Center [id number], Kulwinder, [facility] 120, [place] Kulwinder [place], tel:[phone] [place], , [place]. [id number]. tel: tel:[phone] Miramontes Dec- Merritt Referring In Womens 5-201 Stella. Provider: Jose OAKES, 5 700 Stella PO Box Medical Merritt L, 1522, Center [address], [facility] [place], 120, Center [id number], Kulwinder, [facility] 120, [place] Kulwinder [place], tel:[phone] [place], , [place]. [id number]. tel: tel:[phone] Miramontes Aug- Merritt Referring In Womens 4-201 Stella. Provider: Jose OAKES, 4 700 Stella PO Box Medical Merritt L, 1522, Center [address], [facility] [place], 120, Center [id number], Kulwinder, [facility] 120, [place] Kulwinder [place], tel:[phone] [place], , [place]. [id number]. tel: tel:[phone] Miramontes Aug-0 Liang In Womens 1-200 Elina. Jose OAKES, 8 700 PO Box Medical 1522, Center Dr [place]ai, [facility] [place], 120, [id number], Kulwinder, [facility], tel:[phone] , . tel:[phone] Family History Family Member Diagnosis Age At [...] older Payers Payer name Insurance type Covered alliance party ID Authorization(s) [facility] [id number] [facility] [id number] [facility] [id number] Social History Type Description Quantity Date Captured Alcohol Use Details No Caffeine Use Details Unknown Tobacco Use Status Unknown Smoking Status Never smoker Vital Signs Date / Height Weight BMI Pulse Blood Temperature Respiratory Body Head BMI Time: Rate Pressure Rate Surface Circumference percentile Area 168.40 28.0 lbs 2 mm[Hg] 11:22 kg/m AM eter (2) Chief Complaint And Reason For Visit Unknown Chief Complaint And Reason For Visit Reason For Referral Reason For Referral Unknown Plan Of Care Date Type Action Status Appointment Jaqueline Flannery BOOKED Future Order: Radiology Order Ultrasound OB Follow-up ([id number]) Ordered Future Order: Radiology Order Pelvic Ultrasound ([id number]) Ordered Future Order: Radiology Order Complete OB Ultrasound > 14 Weeks Ordered ([id number]) Date Type Problem Goal Intervention Status Start [...]
--- OUTSIDE RECORDS SUMMARY | 2018-07-13 06:15 | External Medical Summary | Continuity of Care Document ---
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 Provider: Jose OAKES, W/out Hemorrhage, 8 700 Stella [address] Second Medical Merritt L, 1522, TrimesterEncounte Center [address] [place], r for suprvsn of DrVel, normal , 120, Center [id number], second Kulwinder, [facility] 120, [place] [email or web address] weeks Kulwinder COOL, tel:[phone] gestation of [id number] [place], , [place]. [id number]. tel: tel:[phone] Emilei Miramontes Encounter for Apr-1 Merritt Referring In Womens Ultrasound suprvsn of normal 6-201 Stella. Provider: Jose OAKES, , second 8 700 Stella PO Box [id number] weeks Medical [place] L, 1522, gestation of Center [address] [place] [address], Vel Kauffman [place], 120, [place] [id number], Kulwinder [facility] 120, [place] Kulwinder COOL, tel:[phone] [place], , [place]. [id number]. tel: tel:[phone] Emilie Miramontes Encounter for Mar-0 Merritt Referring In Womens suprvsn of normal 5-201 Stella. Provider: Jose OAKES, , second 8 700 Stella PO Box [email or web address] weeks Medical [place] L, 1522, gestation of Center [address] [place] [address], Vel Kauffman, 120, [place] [id number], Kulwinder [facility] 120, [place] Kulwinder COOL, tel:[phone] [place], , [place]. [id number]. tel: tel:[phone] Emilie Miramontes Encntr screen for Feb-0 Merritt Referring In Womens infections w sexl 5-201 Stella. Provider: Health PA, mode of 8 700 Stella PO Box transmissEncounte Medical [place] L, 1522, r for screening Center [address] [place], for oth , [facility] [place], infec/parastc 120, Center [id number], diseasesEncounter Kulwinder, [facility] 120, [place] for suprvsn of Kulwinder COOL, tel:[phone] normal , [phone] [place], first , [place]. [id number]. 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 Provider: Jose OAKES, (routine) w/o abn 7 700 Stella PO Box findingsPap Smear Medical [place] L, 1522, Screening, Center [address] [place] [address], CervixEncsam Kauffman, [facility], for removal of 120, [place] , intrauterine Kulwinder, [facility] 120, [place] contraceptive Kulwinder COOL, tel:[phone] [place], , [place]. [id number]. tel: tel:[phone] Emilie Miramontes Encounter for Aug-2 Merritt Referring In Womens routine checking 6-201 Stella. Provider: Jose OAKES, of intrauterine 6 700 Stella PO Box contracep dev Sweetie Bang L, 1522, Center [address], [facility], 120, Center [id number], Kulwinder, [facility] 120, [place] Kulwinder COOL, tel:[phone] [place], , [place]. [id number]. tel: tel:[phone] Emilie Miramontes Encounter for Mar-2 Liang Referring In Womens routine checking 8-201 Elina. Provider: Jose OAKES, of intrauterine 6 700 Stella PO Box contracep dev Medical [place] L, 1522, Center [address], [facility], 120, Center [id number], Kulwinder, [facility] 120, [place] Kulwinder COOL, tel:[phone] [place], , [place]. [id number]. tel: tel:[phone] Emilie Miramontes Encounter for Mar-2 Liang Referring In Womens Ultrasound insertion of 8-201 Elina. Provider: Jose OAKES, intrauterine 6 700 Stella PO Box contraceptive Medical [place] L, 1522, device Center [address], [facility] Medical [place], 120, Center [id number], Kulwinder, [facility] 120, [place] Kulwinder COOL, tel:[phone] [place], , [place]. [id number]. tel: tel:[phone] Emilie Miramontes Encounter for Mar-2 Liang Referring In Womens insertion of 2-201 Elina. Provider: Jose OAKES, intrauterine 6 700 Stella PO Box contraceptive Medical Merr[place] L, 1522, device Center [address], [facility] [place], 120, Center [id number], Kulwinder, [facility] 120, [place] Kulwinder COOL, tel:[phone] [place], , [place]. [id number]. tel: tel:[phone] Emilie Miramontes Feb-2 Merritt Referring In Womens 5-201 Stella. Provider: Jose OAKES, 5 700 Stella PO Box Medical [place] L, 1522, Center [address], [facility] [place], 120, Center [id number], Kulwinder, [facility] 120, [place] Kulwinder COOL, tel:[phone] [place], , [place]. [id number]. tel: tel:[phone] Miramontes Oct-1 Merritt Referring In Womens 4-201 Stella. Provider: Jose OAKES, 4 700 Stella PO Box Medical [place] L, 1522, Center [address], [facility] [place], 120, Center [id number], Kulwinder, [facility] 120, [place] Kulwinder CO[place], tel:[phone] [place], , [place]. [id number]. tel: tel:[phone] Emilie Miramontes Aug-0 Liang In Womens 1-200 Elina. [facility], 8 700 PO Box Medical 1522, [place] [address] Wai, [facility] [place], 120, [id number], [place], tel:[phone] , [place]. tel: [phone] Family History Family Member Diagnosis Age At [...] name Insurance type Covered libertarian ID Authorization(s) [facility] [id number] [facility] [id number] [facility] [id number] Social History Type Description Quantity Date Captured Alcohol Use Details No Caffeine Use Details Unknown Tobacco Use Status Unknown Smoking Status Never smoker Vital Signs Date / Height Weight BMI Pulse Blood Temperature Respiratory Body Head BMI Time: Rate Pressure Rate Surface Circumference percentile Area 160.50 26.7 110/62 -2018 lbs 1 mm[Hg] 4:33 kg/m PM eter (2) Chief Complaint And Reason For Visit Unknown Chief Complaint And Reason For Visit Reason For Referral Reason For Referral Unknown Plan Of Care Date Type Action Status Appointment Jaqueline Flannery BOOKED Future Order: Radiology Order Pelvic Ultrasound ([id number]) Ordered Future Order: Radiology Order Complete OB Ultrasound > 14 Weeks Ordered ([id number]) Date Type Problem Goal Intervention Status Start [...]
--- OUTSIDE RECORDS SUMMARY | 2018-07-13 06:15 | External Medical Summary | Continuity of Care Document ---
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 Advance Directives Directive Yes / No Effective Date File Name Unknown Encounters Encounter Practice Location Reason(s) Diagnoses Date Provider Care Team Description For Visit Members Emilie Miramontes Abnormal glucose Merritt Referring In Womens complicating 5-201 Stella. Provider: [facility], pregnancyEncounte 8 700 Stella PO Box r for suprvsn of Medical [place] L, 1522, normal , Center [address] [place], third [id number] , [facility], weeks gestation 120, Center [id number], of Kulwinder, [facility] [place] 120, [place] Kulwinder COOL, tel:[phone] [place], [address] , [place]. [id number]. tel: tel:[phone] [facility] Abnormal glucose Pradip-1 Merritt Referring In Womens complicating 3-201 Stella. Provider: Jose OAKES, 8 700 Stella PO Box Medical [place] L, 1522, Center [facility] Dr Wai, [facility], 120, Center [id number], Kulwinder, [facility], [place] 120, [place] Kulwinder COOL, tel:[phone] [place], , [place]. [id number]. tel: tel:[phone] Associates K[facility]winder Pradip-1 Merritt In Womens 2-201 Stella. Jose OAKES, 8 700 PO Box Medical 1522, Center Wai, , [facility], 120, [id number], Miramontes, [facility], tel:[phone] , [place]. tel: [phone] Emilie Miramontes Encounter for Pradip-1 Merritt Referring In Womens suprvsn of normal 1-201 Stella. Provider: Jose OAKES, , third 8 700 Stella PO Box [id number] weeks Medical [place] L, 1522, gestation of Center [address] [place] [address], , [facility], 120, [place] [id number], [facility], [place] Kulwinder COOL, tel:[phone] [place], , [place]. [id number]. tel: tel:[phone] Associates Kulwinder Partial Placenta Pradip-1 Merritt Referring In Womens Ultrasound Previa Nos Or 1-201 Stella. Provider: Jose OAKES, W/out Hemorrhage, 8 700 Stella PO Box Second Medical Merr[place] L, 1522, [id number] weeks Center [address] [place] [address], gestation of , [facility], 120, Center [id number], Kulwinder, [facility] [place] 120, [place] Kulwinder COOL, tel:[phone] [place], , [place]. [id number]. tel: tel:[phone] Emilie Miramontes Supervision of May- Merritt Referring In Womens other high risk 8-201 Stella. Provider: Jose OAKES, pregnancies, 8 700 Stella PO Box second Medical Merr[place] L, 1522, trimesterPartial Center [address] [place] [address], Placenta Previa Vel Kauffman, Nos Or W/out 120, Center [id number], Hemorrhage, Kulwinder [facility] [place] 120, [place] Second Kulwinder COOL, tel:[phone] [id number] weeks [id number] [place], gestation of , [place]. [id number]. tel: tel:[phone] Emilie Miramontes Partial Placenta Apr-1 Merritt Referring In Womens Previa Nos Or 6-201 Stella. Provider: Health [facility], W/out Hemorrhage, 8 700 Stella PO Box Second Medical Merr[place] L, 1522, TrimesterEncounte Center [address] [place], r for suprvsn of Vel Kauffman, normal , 120, Center [id number], second Kulwinder [facility] [place] 120, [place] [id number] weeks Kulwinder COOL, tel:[phone] gestation of [id number] [place], , [place]. [id number]. tel: tel:[phone] Emilie Miramontes Encounter for Apr-1 Merritt Referring In Womens Ultrasound suprvsn of normal 6-201 Stella. Provider: Jose OAKES, , second 8 700 Stella PO Box [id number] weeks Medical Merritt L, 1522, gestation of Center [facility] Wai, Vel Kauffman, 120, Center [id number], Kulwinder [facility] [place] 120, [place] Kulwinder COOL, tel:[phone] [place], , [place]. [id number]. tel: tel:[phone] Emilie Miramontes Encounter for Mar-0 Merritt Referring In Womens suprvsn of normal 5-201 Stella. Provider: Jose OAKES, , second 8 700 Stella PO Box [id number] weeks Medical Merr[place] L, 1522, gestation of Center [address], Vel Kauffman, 120, Center [id number], Kulwinder [facility] [place] 120, [place] Kulwinder COOL, tel:[phone] [place], , [place]. [id number]. tel: tel:[phone] Emilie Miramontes Encntr screen for Feb-0 Merritt Referring In Womens infections w sexl 5-201 Stella. Provider: Jose OAKES, mode of 8 700 Stella PO Box transmissEncounte Medical [place] L, 1522, r for screening Center [address] [place] [address], for oth , [facility] [place], infec/parastc 120, Center [id number], diseasesEncounter Kulwinder, [facility] [place] 120, [place] for suprvsn of Kulwinder COOL, tel:[phone] normal , [phone] [place], first , [place]. [id number]. trimesterEncounte tel: tel:[phone] r For Other [phone] [id number] Specified [id number] weeks gestation of Associates Kulwinder Encntr for manager gyn Sep-2 Issa Referring In Womens exam (general) 5-201 Yazmin. Provider: Jose OAKES, (routine) w/o abn 7 700 Stella PO Box findingsPap Smear Medical Merritt L, 1522, Screening, Center [facility] [place], CervixEncsam Kauffman, [facility] [place], for removal of 120, [place] , intrauterine Kulwinder [facility] [place] 120, [place] contraceptive Kulwinder COOL, tel:[phone] [place], , [place]. [id number]. tel: tel:[phone] Emilie Miramontes Encounter for Aug-2 Merritt Referring In Womens routine checking 6-201 Stella. Provider: Jose OAKES, of intrauterine 6 700 Stella PO Box contracep dev Medical Merr[place] L, 1522, Center [address], [facility], 120, Center [id number], Kulwinder [facility] [place] 120, [place] Kulwinder COOL, tel:[phone] [place], , [place]. [id number]. tel: tel:[phone] Emilie Miramontes Encounter for Mar-2 Liang Referring In Womens routine checking 8-201 Elina. Provider: Jose OAKES, of intrauterine 6 700 Stella PO Box contracep dev Medical Merr[place] L, 1522, Center [address], [facility] [place], 120, Center [id number], Kulwinder [facility] [place] 120, [place] Kulwinder COOL, tel:[phone] [place], , [place]. [id number]. tel: tel:[phone] Emilie Miramontes Encounter for Mar-2 Liang Referring In Womens Ultrasound insertion of 8-201 Elina. Provider: Jose OAKES, intrauterine 6 700 Stella PO Box contraceptive Medical [place] L, 1522, device Center [address], [facility] [place] Medical [place], 120, Center [id number], Kulwinder, [facility] [place] 120, [place] Kulwinder COOL, tel:[phone] [place], , [place]. [id number]. tel: tel:[phone] Emilie Miramontes Encounter for Mar-2 Liang Referring In Womens insertion of 2-201 Elina. Provider: Jose OAKES, intrauterine 6 700 Stella PO Box contraceptive Medical Merr[place] L, 1522, device Center [address], [facility], 120, Center [id number], Kulwinder, [facility] [place] 120, Kulwinder COOL, tel:[phone] [place], , [place]. [id number]. tel: tel:[phone] Emilie Miramontes Feb-2 Merritt Referring In Womens 5-201 Stella. Provider: Jose OAKES, 5 700 Stella PO Box Medical [place] L, 1522, Center [address], [facility] [place], 120, Center [id number], Kulwinder, [facility] [place] 120, [place] Kulwinder COOL, tel:[phone] [place], , [place]. [id number]. tel: tel:[phone] Miramontes Oct- Merritt Referring In Womens 4-201 Stella. Provider: Jose OAKES, 4 700 Stella PO Box Medical [place] L, 1522, Center [address], [facility] [place], 120, Center [id number], Kulwinder, [facility] [place] 120, [place] Kulwinder COOL, tel:[phone] [place], , [place]. [id number]. tel: tel:[phone] Emilie Miramontes Aug-0 Liang In Womens 1-200 Elina. [facility], 8 700 [facility] 1522, [place] Dr Wai, [facility] [place], 120, [id number], [place], tel:[phone] , . tel: [phone] Family History Family Member Diagnosis Age At [...] older Payers Payer name Insurance type Covered republican ID Authorization(s) [facility] [id number] [facility] [id number] [facility] [id number] Social History Type Description Quantity Date Captured Unknown Vital Signs Date / Height Weight BMI Pulse Blood Temperature Respiratory Body Head BMI Time: Rate Pressure Rate Surface Circumference percentile Area Unknown Chief Complaint And Reason For Visit Unknown Chief Complaint And Reason For Visit Reason For Referral Reason For Referral Unknown Plan Of Care Date Type Action Status Appointment Jaqueline Flannery BOOKED Future Order: Radiology Order Ultrasound OB Follow-up ([id number]) Ordered Future Order: Radiology Order Pelvic Ultrasound ([id number]) Ordered Future Order: Radiology Order Complete OB Ultrasound > 14 Weeks Ordered ([id number]) Date Type Problem Goal Intervention Status Start [...]
--- OUTSIDE RECORDS SUMMARY | 2018-07-13 06:15 | External Medical Summary | Continuity of Care Document ---
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 Encounter for suprvsn of normal - , second trimester 20 weeks gestation of - Encntr screen for infections w sexl - mode of transmiss Encounter for screening for oth - infec/parastc diseases Encounter for suprvsn of normal - , first trimester Encounter For Other Specified - Screening 10 weeks gestation of - Partial Placenta Previa Nos Or W/out - Hemorrhage, Second Trimester Encounter for suprvsn of normal - , second trimester 20 weeks gestation of - Pap Smear Screening, Cervix - Encounter for removal of intrauterine - contraceptive device Encounter for insertion of intrauterine contraceptive device Encounter for insertion of - intrauterine contraceptive device Encounter for routine checking of intrauterine contracep dev Encounter for routine checking of intrauterine contracep dev Encounter for suprvsn of normal - , second trimester 14 weeks gestation of - Dysuria - Active Active Procedures Procedure Date Ultrasound exam of preg uterus, complete Results Test Name Date and Time Measure [...] Medical Merritt L, 1522, TrimesterEncounte Center [address] [place], r for suprvsn of DrVel, normal , 120, Center [id number], [facility] Kulwinder [facility] 120, [place] [email or web address] weeks Kulwinder COOL, tel:[phone] gestation of [phone] [place], , [place]. [id number]. tel: tel:[phone] Emilie Miramontes Encounter for Apr-1 Merritt Referring In Womens Ultrasound suprvsn of normal 6-201 Stella. Provider: Jose OAKES, , second 8 700 Stella PO Box [email or web address] weeks Medical Merritt L, 1522, gestation of Center [facility] Wai, Vel [place], 120, [place] [id number], Kulwinder [facility] 120, [place] Kulwinder COOL, tel:[phone] [place], , [place]. [id number]. tel: tel:[phone] Emilie Miramontes Encounter for Mar-0 Merritt Referring In Womens suprvsn of normal 5-201 Stella. Provider: Jose OAKES, , second 8 700 Stella PO Box [email or web address] weeks Medical Merritt L, 1522, gestation of Center [facility] Wai, Vel [place], 120, [place] [id number], Kulwinder [facility] 120, [place] Kulwinder [place], tel:[phone] [place], , [place]. [id number]. tel: tel:[phone] Emilie Miramontes Encntr screen for Feb-0 Merritt Referring In Womens infections w sexl 5-201 Stella. Provider: Jose OAKES, mode of 8 700 Stella PO Box transmissEncounte Medical Merritt L, 1522, r for screening Center [address] [place] [address], for oth Dr, [facility], infec/parastc 120, Center [id number], diseasesEncounter Kulwinder, [facility] 120, [place] for suprvsn of Kulwinder COOL, tel:[phone] normal , [phone] [place], first , [place]. [id number]. 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 Provider: Jose OAKES, (routine) w/o abn 7 700 Stella PO Box findingsPap Smear Medical Merritt L, 1522, Screening, Center [address] [place] [address], CervixEncsam [place], [facility], for removal of 120, Center [id number], intrauterine Kulwinder, [facility] 120, [place] contraceptive Kulwinder COOL, tel:[phone] [place], , [place]. [id number]. tel: tel:[phone] Emilie Miramontes Encounter for Aug-2 Merritt Referring In Womens routine checking 6-201 Stella. Provider: Jose OAKES, of intrauterine 6 700 Stella PO Box contracep dev Medical Merritt L, 1522, Center [facility] Dr Wai, [facility], 120, Center [id number], Kulwinder [facility] 120, [place] Kulwinder COOL, tel:[phone] [place], , [place]. [id number]. tel: tel:[phone] Emilie Miramontes Encounter for Mar-2 Liang Referring In Womens routine checking 8-201 Elina. Provider: Jose OAKES, of intrauterine 6 700 Stella PO Box contracep dev Medical Merritt L, 1522, Center [address] Dr Wai, [facility], 120, Center [id number], Kulwinder, [facility] 120, [place] Kulwinder COOL, tel:[phone] [place], [address] , [place]. [id number]. tel: tel:[phone] Emilie Miramontes Encounter for Mar-2 Liang Referring In Womens Ultrasound insertion of 8-201 Elina. Provider: Jose OAKES, intrauterine 6 700 Stella PO Box contraceptive Medical Merritt L, 1522, device Center [address] Dr Wai, [facility] Medical [place], 120, Center [id number], Kulwinder, [facility] 120, [place] Kulwinder COOL, tel:[phone] [place], , [place]. [id number]. tel: tel:[phone] Emilie Miramontes Encounter for Mar-2 Liang Referring In Womens insertion of 2-201 Elina. Provider: Jose OAKES, intrauterine 6 700 Stella PO Box contraceptive Medical Merritt L, 1522, device Center [address] Dr Wai, [facility] [place], 120, Center [id number], Kulwinder, [facility] 120, Kulwinder COOL, tel:[phone] [place], , [place]. [id number]. tel: tel:[phone] Emilie Miramontes Feb-2 Merritt Referring In Womens 5-201 Stella. Provider: Jose OAKES, 5 700 Stella PO Box Medical Merritt L, 1522, Center [address], [facility] [place], 120, Center [id number], Kulwinder, [facility] 120, [place] Kulwinder COOL, tel:[phone] [place], , [place]. [id number]. tel: tel:[phone] Miramontes Oct-1 Merritt Referring In Womens 4-201 Stella. Provider: Jose OAKES, 4 700 Stella PO Box Medical Merritt L, 1522, Center [address], [facility] [place], 120, Center [id number], Kulwinder, [facility] 120, [place] Kulwinder COOL, tel:[phone] [place], , [place]. [id number]. tel: tel:[phone] Emilie Miramontes Aug-0 Liang In Womens 1-200 Elina. [facility], 8 700 PO Box Medical 1522, [place] Dr Wai Vel [place], 120, [id number], [place], tel:[phone] , [place]. tel:[phone] Family History Family Member Diagnosis Age At [...] Covered alliance party ID Authorization(s) [facility] [id number] [facility] [id number] [facility] [id number] Social History Type Description Quantity Date Captured [...] Jaqueline Flannery BOOKED Future Order: Radiology Order Complete OB Ultrasound > 14 Weeks Ordered ([id number]) Future Order: Radiology Order Pelvic Ultrasound ([id number]) Ordered Date Type Problem Goal Intervention Status [...]
--- OUTSIDE RECORDS SUMMARY | 2018-07-13 06:15 | External Medical Summary | Continuity of Care Document ---
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) w/o 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 Pap Smear Screening, Cervix - Encounter for removal of intrauterine - contraceptive device Encounter for insertion of intrauterine contraceptive device Encounter for insertion of - intrauterine contraceptive device Encounter for routine checking of intrauterine contracep dev Encounter for routine checking of intrauterine contracep dev Dysuria - Active Active Procedures Procedure Date Remove intrauterine device (IUD) Preventive checkup, est,18-39 yrs Specimen handling/transport Results Test Name Date and Time Measure Units Reference Range Abnormal Flag Comments Unknown Advance Directives Directive Yes / No Effective Date File Name Unknown Encounters Encounter Practice Location Reason(s) Diagnoses Date Provider Care Team Description For Visit Members [facility] Miramontes an 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 Provider: est,18-39 Health PA, patient well (routine) w/o 7 700 Stella yrs PO Box woman exam 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Pap Medical Merritt L, 1522, ([facility] [address] [place] [address], complaint) Screening, , Vel COOL, CervixEncounter 120, Center [id number], for removal of Miramontes, [facility] 120, [place] intrauterine Kulwinder COOL, tel:[phone] contraceptive [phone] [place], device , [place]. [id number]. tel: tel:[phone] Miramontes Encounter for Aug-2 Merritt Referring In Womens routine 6-201 Stella. Provider: Jose OAKES, checking of 6 700 Stella PO Box intrauterine Medical Merritt L, 1522, contracep dev Center [facility] Dr Wai, Vel [place], 120, Center [id number], Kulwinder [facility] 120, [place] Kulwinder COOL, tel:[phone] [place], , [place]. [id number]. tel: tel:[phone] Miramontes Encounter for Mar-2 Liang Referring In Womens routine 8-201 Elina. Provider: Jose OAKES, checking of 6 700 Stella PO Box intrauterine Medical Merritt L, 1522, contracep dev Center [address], Vel [place], 120, Center [id number], Kulwinder [facility] 120, [place] Kulwinder COOL, tel:[phone] [place], , [place]. [id number]. tel: tel:[phone] Miramontes Encounter for Mar-2 Liang Referring In Womens Ultrasound insertion of 8-201 Elina. Provider: Jose OAKES, intrauterine 6 700 Stella PO Box contraceptive Medical Merritt L, 1522, device Center [facility] Dr Wai, Vel [place], 120, Center [id number], Kulwinder Vel 120, [place] Kulwinder [place], tel:[phone] [place], , [place]. [id number]. tel: tel:[phone] Miramontes Encounter for Mar-2 Liang Referring In Womens insertion of 2-201 Elina. Provider: Jose OAKES, intrauterine 6 700 Stella PO Box contraceptive Medical Merritt L, 1522, device Center [address] Dr Wai, [facility] Medical [place], 120, Center [id number], Kulwinder, [facility] 120, [place] Kulwinder COOL, tel:[phone] [place], , [place]. [id number]. tel: tel:[phone] Associates Kulwinder March-0 Merritt Referring In Womens 7-201 Stella. Provider: Jose OAKES, 5 700 Stella PO Box Medical Merritt L, 1522, Center [address] Dr Wai, [facility] [place], 120, Center [id number], Kulwinder, [facility] 120, Kulwinder COOL, tel:[phone] [place], , [place]. [id number]. tel: tel:[phone] Associates Kulwinder Dec-2 Merritt Referring In Womens 5-201 Stella. Provider: Jose OAKES, 5 700 Stella PO Box Medical Merritt L, 1522, Center [facility] Dr Wai, [facility] [place], 120, Center [id number], [facility], Kulwinder COOL, tel:[phone] [place], , [place]. [id number]. tel: tel:[phone] Emilie Miramontes Aug- Merritt Referring In Womens 4-201 Stella. Provider: Jose OAKES, 4 700 Stella PO Box Medical Merritt L, 1522, Center [facility] Dr Wai, [facility] [place], 120, Center [id number], Kulwinder, [facility] 120, [place] Kulwinder COOL, tel:[phone] [place], , [place]. [id number]. tel: tel:[phone] Associates Kulwinder Aug-0 Liang In Womens 1-200 Elina. Jose OAKES, 8 700 PO Box Medical 1522, Center Dr Wai, [facility] [place], 120, [id number], [place], [place], tel:[phone] , [place]. tel: [phone] Family History Family Member Diagnosis Age At [...] name Insurance type Covered democrat ID Authorization(s) [facility] [id number] [facility] [id number] [facility] [id number] Social History Type Description Quantity Date Captured Alcohol Use Details No Caffeine Use Details coffee Tobacco Use Status Never smoked tobacco Smoking Status Never smoker Non-Smoking Tobacco Use : No Details Available : No Details Available Details Vital Signs Date / Height Weight BMI Pulse Blood Temperature Respiratory Body Head BMI Time: Rate Pressure Rate Surface Circumference percentile Area 65.00 142.60 23.7 76 106/ in lbs 3 /min mm[Hg] 11:04 kg/m AM melchorer (2) Chief Complaint And Reason For Visit Most recent encounter only, dated '08/11/2017 11:00'. an established patient well woman exam (chief complaint). Description: Thinking she wants her Mirenaout. Wanting to get again in the the next few months. Her last period was quite heavy on the Mirena which was unusual. Also has more discharge than normal with the Mirena. No other health concerns. Reason For Referral Reason For Referral Unknown Plan Of Care Date Type Action Status Future Order: Lab Order Pap Smear With HPV Reflex If ASCUS Ordered ([id number]) Future Order: Radiology Order Pelvic Ultrasound ([id number]) Ordered Date Type Problem Goal Intervention Status Start Date Unknown. History Of Present Illness Encounter Date Complaint History Of Present Illness an established patient well woman Thinking she wants her Mirena out. exam Wanting to get again in the the next few months. Her last period was quite heavy on the Mirena which was unusual. Also has more discharge than normal with the Mirena. No other health concerns. Functional Status Encounter Date Functional Assessment Cognitive Assessment Unknown Medications Administered Medication Instructions Dosage Effective Dates (start - stop) Status Comments Drug Treatment Unknown Instructions Date Instruction Additional Information Unknown
--- OUTSIDE RECORDS SUMMARY | 2018-07-13 06:15 | External Medical Summary | Continuity of Care Document ---
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 Provider: est,18-39 Health PA, patient well (routine) w/o 7 700 Stella yrs PO Box woman exam 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Pap Medical Merritt L, 1522, (chief [facility] [address] [place], [place] [address], complaint) Screening, , Vel COOL, CervixEncounter 120, Center [id number], for removal of Miramontes, [facility] 120, [place] intrauterine Kulwinder COOL, tel:[phone] contraceptive [phone] [place], device , [place]. [id number]. tel: tel:[phone] Miramontes Encounter for Aug-2 Merritt Referring In Womens routine 6-201 Stella. Provider: Jose OAKES, checking of 6 700 Stella PO Box intrauterine Medical Merritt L, 1522, contracep dev Center [facility] Dr Wai, Vel [place], 120, Center [id number], Kulwinder [facility] 120, [place] Kulwinder COOL, tel:[phone] [place], , [place]. [id number]. tel: tel:[phone] Miramontes Encounter for Mar-2 Liang Referring In Womens routine 8-201 Elina. Provider: Jose OAKES, checking of 6 700 Stella PO Box intrauterine Medical Merritt L, 1522, contracep dev Center [address], Vel [place], 120, Center [id number], Kulwinder [facility] 120, [place] Kulwinder COOL, tel:[phone] [place], , [place]. [id number]. tel: tel:[phone] Miramontes Encounter for Mar-2 Liang Referring In Womens Ultrasound insertion of 8-201 Elina. Provider: Jose OAKES, intrauterine 6 700 Stella PO Box contraceptive Medical Merritt L, 1522, device Center [facility] Dr Wai, Vel [place], 120, Center [id number], Kulwinder [facility] 120, [place] Kulwinder COOL, tel:[phone] [place], , [place]. [id number]. tel: tel:[phone] Miramontes Encounter for Mar-2 Liang Referring In Womens insertion of 2-201 Elina. Provider: Jose OAKES, intrauterine 6 700 Stella PO Box contraceptive Medical Merritt L, 1522, device Center [address] Dr Wai, [facility] [place], 120, Center [id number], Miramontes, [facility] 120, Kulwinder COOL, tel:[phone] [place], [phone] , . [id number]. tel: tel:[phone] Emilie Miramontes Merritt Referring In Womens 5-201 Stella. Provider: Jose OAKES, 5 700 Stella PO Box Medical Merritt L, 1522, Center [address] Dr Wai, [facility] [place], 120, Center [id number], Kulwinder, [facility] 120, Kulwinder COOL, tel:[phone] [place], , . [id number]. tel: tel:[phone] Emilie Miramontes Merritt Referring In Womens 4-201 Stella. Provider: Jose OAKES, 4 700 Stella PO Box Medical Merritt L, 1522, Center [facility] Dr Wai, [facility] [place], 120, Center [id number], [facility], Kulwinder [place], tel:[phone] [place], , . [id number]. tel: tel:[phone] Emilie Miramontes Jun-0 Liang In Womens 1-200 Elina. Jose OAKES, 8 700 PO Box Medical 15[address], [address] W[address], [facility] [place], 120, [id number], Kulwinder, [place], tel:[phone] , . tel: [phone] Family History Family Member Diagnosis Age At [...] Insurance type Covered green party ID Authorization(s) [facility] [id number] [facility] [id number] [facility] [id number] Social History Type Description Quantity Date Captured [...] lbs 3 /min mm[Hg] 11:04 kg/m AM eter (2) Chief Complaint And Reason For Visit Most recent encounter only, dated '08/11/2017 11:00'. an established patient well woman exam (chief complaint). Description: Thinking she wants her Mirenaout. Wanting to get again in the next few months. Her last period was quite heavy on the Mirena which was unusual. Also has more discharge than normal with the Mirena. No other health concerns. Reason For Referral Reason For Referral Unknown Plan Of Care Date Type Action Status Future Order: Radiology Order Pelvic Ultrasound ([id number]) Ordered Date Type Problem Goal Intervention Status Start Date Unknown. History Of Present Illness Encounter Date Complaint History Of Present Illness an established patient well woman Thinking she wants her Mirena out. exam Wanting to get again in the next few months. Her last period [...]
--- OUTSIDE RECORDS SUMMARY | 2018-07-13 06:15 | External Medical Summary | Continuity of Care Document ---
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 Provider: Health [place], pregnancyEncounte 8 700 Stella PO Box r for suprvsn of Medical Merritt L, 1522, normal , [facility], third [id number] , [facility], weeks gestation 120, [place] [id number], of [facility] 120, [facility], [place], tel:[phone] [place], [facility] , [place]. [id number]. tel: tel: [phone] Emilie [place]es Pradip-1 Merritt In Womens 4-201 Stella. Health [place], 8 700 PO Box Medical 1522, [place] [address] Wai, [facility], 120, [id number], [facility], tel:[phone] [facility] , [place]. tel: [phone] Emilie MCCRAY [place] Abnormal glucose Pradip-1 Merritt Referring In Womens complicating 3-201 Stella. Provider: Health [place], 8 700 Stella PO Box Medical Merritt L, 1522, Center [address], [facility], 120, [place] [id number], [facility] 120, [place] Kulwinder COOL, tel:[phone] [place], , [place]. [id number]. tel: tel:[phone] Emilie [place]es Encounter for Pradip-1 Merritt Referring In Womens suprvsn of normal 1-201 Stella. Provider: Jose OAKES, , third 8 700 Stella PO Box [id number] weeks Medical Merritt L, 1522, gestation of Center [address] [place] [address], , [facility], 120, Center [id number], Kulwinder, [facility] 120, [place] Kulwinder COOL, tel:[phone] [place], , [place]. [id number]. tel: tel:[phone] Associates [place] Partial Placenta Pradip-1 Merritt Referring In Womens Ultrasound Previa Nos Or 1-201 Stella. Provider: Jose OAKES, W/out Hemorrhage, 8 700 Stella PO Box Second Medical Merritt L, 1522, [id number] weeks [address], gestation of Dr [facility] Sweetie COOL, 120, Center [id number], Kulwinder [facility] 120, [place] Kulwinder CO[place], tel:[phone] [place], , [place]. [id number]. tel: tel:[phone] Emilie Miramontes Supervision of March- Merritt Referring In Womens other high risk 8-201 Stella. Provider: Jose OAKES, pregnancies, 8 700 Stella PO Box second Medical Merritt L, 1522, trimesterPartial Center [address] [place] [address], Placenta Previa , [facility] Sweetie COOL, Nos Or W/out 120, [place] [id number], Hemorrhage, Kulwinder, [facility] 120, [place] Second Kulwinder COOL, tel: [id number] weeks [phone] [place], gestation of , [place]. [id number]. tel: tel:[phone] Associates [place] Partial Placenta Apr-1 Merritt Referring In Womens Previa Nos Or 6-201 Stella. Provider: Jose OAKES, W/out Hemorrhage, 8 700 Stella PO Box Second Medical Merritt L, 1522, TrimesterEncounte Center [address] [place] [address], r for suprvsn of Vel Kauffman, normal , 120, Center [id number], second Kulwinder Vel 120, [place] [email or web address] weeks Kulwinder COOL, tel:[phone] gestation of [phone] [place], , [place]. [id number]. tel: tel:[phone] Emilie [place]es Encounter for Apr-1 Merritt Referring In Womens Ultrasound suprvsn of normal 6-201 Stella. Provider: Health [place], , second 8 700 Stella PO Box [email or web address] weeks Medical Merritt L, 1522, gestation of Center [address] [place] [address], , Vel COOL, 120, Center [id number], Kulwinder [facility] 120, [place] Kulwinder COOL, tel:[phone] [place], , [place]. [id number]. tel: tel:[phone] Emilie [place]es Encounter for Mar-0 Merritt Referring In Womens suprvsn of normal 5-201 Stella. Provider: Health [facility], , second 8 700 Stella PO Box [email or web address] weeks Medical Merritt L, 1522, gestation of Center [address] [place] [address], Vel K[place]ffman, 120, Center [id number], Kulwinder [facility] 120, [place] Kulwinder COOL, tel:+ [phone] [place], , [place]. [id number]. tel: tel:[phone] Emilie Miramontes Encntr screen for Feb-0 Merritt Referring In Womens infections w sexl 5-201 Stella. Provider: Health [facility], mode of 8 700 Stella PO Box transmissEncounte Medical Merritt L, 1522, r for screening Center [address] [place] [address], for oth Vel Kauffman, infec/parastc 120, Center [id number], diseasesEncounter Kulwinder [facility] 120, [place] for suprvsn of Kulwinder COOL, tel:[phone] normal , [phone] [place], first , [place]. [id number]. 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 Provider: Jose OAKES, (routine) w/o abn 7 700 Stella PO Box findingsPap Smear Medical Merritt L, 1522, Screening, Center 700 Wai, CervixEncounter , [facility], for removal of 120, Center [id number], intrauterine Kulwinder, [facility] 120, [place] contraceptive Kulwinder COOL, tel:[phone] [place], , [place]. [id number]. tel: tel:[phone] Emilie [place]es Encounter for Aug-2 Merritt Referring In Womens routine checking 6-201 Stella. Provider: Jose OAKES, of intrauterine 6 700 Stella PO Box contracep dev Medical Merritt L, 1522, Center [address] Dr Wai, [facility], 120, Center [id number], Kulwinder, [facility] 120, [place] Kulwinder COOL, tel:[phone] [place], , [place]. [id number]. tel: tel:[phone] Emilie [place]amontes Encounter for Mar-2 Liang Referring In Womens routine checking 8-201 Elina. Provider: Jose OAKES, of intrauterine 6 700 Stella PO Box contracep dev Medical Merritt L, 1522, Center [address] Dr Wai, [facility], 120, Center [id number], Kulwinder, [facility] 120, [place] Kulwinder COOL, tel:[phone] [place], , [place]. [id number]. tel: tel:[phone] Emilie Miramontes Encounter for Mar-2 Liang Referring In Womens Ultrasound insertion of 8-201 Elina. Provider: Jose OAKES, intrauterine 6 700 Stella PO Box contraceptive Medical Merritt L, 1522, device Center [address] Dr Wai, [facility] Medical [place], 120, Center [id number], Kulwinder, [facility] 120, [place] Kulwinder COOL, tel:[phone] [place], , [place]. [id number]. tel: tel:[phone] Emilie Miramontes Encounter for Jan-2 Liang Referring In Womens insertion of 2-201 Elina. Provider: Jose OAKES, intrauterine 6 700 Stella PO Box contraceptive Medical Merritt L, 1522, device Center [facility] [address] Wai, [facility] [place], 120, Center [id number], Kulwinder, [facility] 120, Kulwinder COOL, tel:[phone] [place], , [place]. [id number]. tel: tel:[phone] Emilie Miramontes Dec- Merritt Referring In Womens 5-201 Stella. Provider: Jose OAKES, 5 700 Stella PO Box Medical Merrtit L, 1522, Center [facility] [address] Wai, [facility] [place], 120, [place] [id number], [place], [facility] 120, Kulwinder COOL, tel:[phone] [place], , [place]. [id number]. tel: tel:[phone] Emilie Mir[place]ontes Aug- Merritt Referring In Womens 4-201 Stella. Provider: Jose OAKES, 4 700 Stella PO Box Medical Merritt L, 1522, Center [facility] [address] Wai, [facility] [place], 120, [place] [id number], [facility] 120, Kulwinder COOL, tel:[phone] [place], , [place]. [id number]. tel: tel:[phone] [place]ontes Aug-0 Liang In Womens 1-200 Elina. Health [facility], 8 700 PO Box Medical 1522, [place] Dr Wai, [facility] [place], 120, [id number], [place], [place], tel:[phone] , [place]. tel: [phone] Family History Family Member Diagnosis Age At [...] Insurance type Covered alliance party ID Authorization(s) [place] [id number] [place] [id number] [place] [id number] Social History Type Description Quantity Date Captured [...] Future Order: Radiology Order Ultrasound OB Follow-up ([id number]) Ordered Future Order: Radiology Order Pelvic Ultrasound ([id number]) Ordered Future Order: Radiology Order Complete OB Ultrasound > 14 Weeks Ordered ([id number]) Date Type Problem Goal Intervention Status Start [...]
--- OUTSIDE RECORDS SUMMARY | 2018-07-13 06:15 | External Medical Summary | Continuity of Care Document ---
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 [id number]. tel: tel:[phone] [facility] Abnormal glucose Pradip-1 Merritt Referring In Womens complicating 3-201 Stella. Provider: Jose OAKES, 8 700 Stella PO Box Sweetie Bang L, 1522, Center [facility] Wai, , [facility], 120, [place] [id number], [facility] 120, [place], tel:[phone] [place], [address] , [place]. [id number]. tel: tel:[phone] Emilie Miramontes Encounter for Pradip-1 Merritt Referring In Womens suprvsn of normal 1-201 Stella. Provider: Health [place], , third 8 700 Stella PO Box [email or web address] weeks Medical Merritt L, 1522, gestation of Center [address] [place] [address], Vel Kauffman, 120, Center [id number], Kulwinder, [facility] 120, [place] Kulwinder COOL, tel:[phone] [place], , [place]. [id number]. tel: tel:[phone] Associates [place] Partial Placenta Pradip- Merritt Referring In Womens Ultrasound Previa Nos Or 1-201 Stella. Provider: Health [place], W/out Hemorrhage, 8 700 Stella PO Box Second Medical Merritt L, 1522, [id number] weeks Center [address] [place] [address], gestation of Vel Kauffman, 120, Center [id number], Kulwinder [facility] 120, [place] Kulwinder COOL, tel:[phone] [place], , [place]. [id number]. tel: tel:[phone] Associates [place] Supervision of Merritt Referring In Womens other high risk 8-201 Stella. Provider: Health [place], pregnancies, 8 700 Stella PO Box second Medical Merritt L, 1522, trimesterPartial Center [address] [place] [address], Placenta Previa Vel Kauffman, Nos Or W/out 120, Center [id number], Hemorrhage, Kluwinder, [facility] 120, [place] Second Kulwinder COOL, tel:+ [id number] weeks [phone] [place], gestation of , [place]. [id number]. tel: tel:[phone] Associates [place] Partial Placenta Apr- Merritt Referring In Womens Previa Nos Or 6-201 Stella. Provider: Jose OAKES, W/out Hemorrhage, 8 700 Stella PO Box Second Medical Merritt L, 1522, TrimesterEncounte Center [address] [place] [address], r for suprvsn of Vel Kauffman, normal , 120, Center [id number], second Kulwinder [facility] 120, [place] [id number] weeks Kulwinder COOL, tel:+[phone] gestation of [phone] [place], , [place]. [id number]. tel: tel:[phone] Eimlie Miramontes Encounter for Apr-1 Merritt Referring In Womens Ultrasound suprvsn of normal 6-201 Stella. Provider: Jose OAKES, , second 8 700 Stella PO Box [id number] weeks Medical Merritt L, 1522, gestation of Center [address] [place] [address], , [facility], 120, Center [id number], [facility], [place] Kulwinder COOL, tel:[phone] [place], , [place]. [id number]. tel: tel:[phone] Emilie Miramontes Encounter for Mar-0 Merritt Referring In Womens suprvsn of normal 5-201 Stella. Provider: Jose OAKES, , second 8 700 Stella PO Box [email or web address] weeks Medical Merritt L, 1522, gestation of Center [address] [place] [address], Dr [facility], 120, [place] [id number], [facility], [place] Kulwinder COOL, tel:[phone] [place], , [place]. [id number]. tel: tel:[phone] Emilie Miramontes Encntr screen for Feb-0 Merritt Referring In Womens infections w sexl 5-201 Stella. Provider: Jose OAKES, mode of 8 700 Stella PO Box transmissEncounte [facility], 1522, r for screening Center [address] [place] [address], for oth , [facility] Sweetie COOL, infec/parastc 120, [place] [id number], diseasesEncounter [facility], [place] for suprvsn of Kulwinder COOL, tel:[phone] normal , [phone] [place], first , [place]. [id number]. 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 Provider: Jose OAKES, (routine) w/o abn 7 700 Stella PO Box findingsPap Smear Medical Merritt L, 1522, Screening, Center 700 Wai, CervixEncounter , [facility], for removal of 120, Center [id number], intrauterine Kulwinder, [facility] 120, [place] contraceptive Kulwinder COOL, tel:[phone] [place], , [place]. [id number]. tel: tel:[phone] Emilie Miramontes Encounter for Aug-2 Merritt Referring In Womens routine checking 6-201 Stella. Provider: Jose OAKES, of intrauterine 6 700 Stella PO Box contracep dev Medical Merritt L, 1522, Center [address] Dr Wai, [facility], 120, Center [id number], Kulwinder, [facility] 120, [place] Kulwinder COOL, tel:[phone] [place], , [place]. [id number]. tel: tel:[phone] Miramontes Encounter for Mar-2 Liang Referring In Womens routine checking 8-201 Elina. Provider: Jose OAKES, of intrauterine 6 700 Stella PO Box contracep dev Medical Merritt L, 1522, Center [address] Dr Wai, [facility], 120, [place] [id number], Kulwinder, [facility] 120, [place] Kulwinder COOL, tel:[phone] [place], , [place]. [id number]. tel: tel:[phone] Miramontes Encounter for Mar-2 Liang Referring In Womens Ultrasound insertion of 8-201 Elina. Provider: Jose OAKES, intrauterine 6 700 Stella PO Box contraceptive Medical Merritt L, 1522, device Center [address] W[address], [facility] [place], 120, Center [id number], Kulwinder, [facility] 120, [place] Kulwinder COOL, tel:[phone] [place], , [place]. [id number]. tel: tel:[phone] Miramontes Encounter for Mar-2 Liang Referring In Womens insertion of 2-201 Elina. Provider: Jose OAKES, intrauterine 6 700 Stella PO Box contraceptive Medical Merritt L, 1522, device Center [address] Dr Wai, Vel Medical [place], 120, Center [id number], [place], [facility] 120, Kulwinder COOL, tel:[phone] [place], , . [id number]. tel: tel:[phone] Emilie Miramontes Dec- Merritt Referring In Womens 5-201 Stella. Provider: Health [place], 5 700 Stella Box Medical [facility] L, 1522, Center [facility] Dr Wai, [facility] [place], 120, [place] [id number], [facility] 120, [place], Kulwinder, tel:[phone] [place], , [place]. [id number]. tel: tel:[phone] Emilie Miramontes Merritt Referring In Womens 4-201 Stella. Provider: Health [place], 4 700 Stella Box [facility] L, 1522, Center [facility] Dr Wai, [facility], 120, [place] [id number], [facility] 120, Kulwinder COOL, tel:[phone] [place], , [place]. [id number]. tel: tel:[phone] Emilie Miramontes Jun-0 Liang In Womens 1-200 Elina. Health [place], 8 700 PO Box Medical 1522, [place] Dr Wai, [facility] [place], 120, [id number], [place], [place], tel:[phone] , [place]. tel: [phone] Family History Family Member Diagnosis Age At [...] Insurance type Covered alliance party ID Authorization(s) [facility] [id number] [facility] [id number] [facility] [id number] Social History Type Description Quantity Date Captured [...] Future Order: Radiology Order Ultrasound OB Follow-up ([id number]) Ordered Future Order: Radiology Order Pelvic Ultrasound ([id number]) Ordered Future Order: Radiology Order Complete OB Ultrasound > 14 Weeks Ordered ([id number]) Date Type Problem Goal Intervention Status Start [...]
--- OUTSIDE RECORDS SUMMARY | 2018-07-13 06:15 | External Medical Summary | Continuity of Care Document ---
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 Abnormal glucose complicating - Encntr screen for infections w sexl [...] third trimester 30 weeks gestation of - Pap Smear Screening, [...] Dysuria - Active Active Procedures Procedure Date Glucose tolerance test (GTT) GTT-added samples Venpnctr fngr/heel/ear stick routne Results Test Name Date and Time Measure Units Reference Range Abnormal Flag Comments Unknown Advance Directives Directive Yes / No Effective Date File Name Unknown Encounters Encounter Practice Location Reason(s) Diagnoses Date Provider Care Team Description For Visit Members Emilie Miramontes Abnormal glucose Pradip-2 Merritt Referring In Womens complicating 5-201 Stella. Provider: Jose AOKES pregnancyEncounte 8 700 Stella PO Box r for suprvsn of Medical Merritt L, 1522, normal , Center [address] [place] [address], third [email or web address], Vel COOL, weeks gestation 120, Olin [id number], of [facility] 120, [place] Kulwinder COOL, tel:[phone] [place], , [place]. [id number]. tel: tel: [phone] [facility] Abnormal glucose Pradip-1 Merritt Referring In Womens complicating 3-201 Stella. Provider: Jose OAKES, 8 700 Stella PO Box Medical Merritt L, 1522, Center 700 [place], Vel [place]ff[place], 120, Center [id number], [facility] 120, [place] Kulwinder [place], tel:[phone] [place], , . [id number]. tel: tel:[phone] Associates Kulwinder Encounter for Pradip-1 Merritt Referring In Womens suprvsn of normal 1-201 Stella. Provider: Health PA, , third 8 700 Stella PO Box [email or web address] weeks Medical Merritt L, 1522, gestation of Center [address] [place] [address], Vel [place], 120, Center , Kulwinder Vel 120, [place] Kulwinder [place], tel:[phone] [place], , [place]. [id number]. tel: tel:[phone] Associates [facility] Partial Placenta Pradip-1 Merritt Referring In Womens Ultrasound Previa Nos Or 1-201 Stella. Provider: Health CHAMP, W/out Hemorrhage, 8 700 Stella PO Box Second Medical Merritt L, 1522, [email or web address] weeks Center [address] [place] [address], gestation of Vel [place]ff[place], 120, Center [id number], Kulwinder Vel 120, [place] Kulwinder COOL, tel:[phone] [place], , [place]. [id number]. tel: tel:[phone] Associates K[facility] Supervision of March- Merritt Referring In Womens other high risk 8-201 Stella. Provider: Health PA, pregnancies, 8 700 Stella PO Box second Medical Merritt L, 1522, trimesterPartial Center [address] [place] [address], Placenta Previa Vel Kauffman, Nos Or W/out 120, Olin [id number], Hemorrhage, Kulwinder [facility] 120, [place] Second Kulwinder COOL, tel: [id number] weeks [phone] [place], gestation of , [place]. [id number]. tel: tel:[phone] Associates [facility] Partial Placenta Apr-1 Merritt Referring In Womens Previa Nos Or 6-201 Stella. Provider: Jose OAKES, W/out Hemorrhage, 8 700 Stella PO Box Second Medical Merritt L, 1522, TrimesterEncounte Center [address] [place] [address], r for suprvsn of Vel Kauffman, normal , 120, Center [id number], second [place], Vel 120, [place] [email or web address] weeks Kulwinder COOL, tel:+ [phone] of [phone] [place], , [place]. [id number]. tel: tel:[phone] Emilie Miramontes Encounter for Apr-1 Merritt Referring In Womens Ultrasound suprvsn of normal 6-201 Stella. Provider: Health CHAMP, , second 8 700 Stella PO Box [id number] weeks Medical Merritt L, 1522, gestation of Center [address] [place] [address], , [facility], 120, Center [id number], Kulwinder, [facility] 120, [place] Kulwinder COOL, tel:[phone] [place], , [place]. [id number]. tel: tel:[phone] Emilie Mir[place]ontes Encounter for Mar-0 Merritt Referring In Womens suprvsn of normal 5-201 Stella. Provider: Jose OAKES, , second 8 700 Stella PO Box [email or web address] weeks Medical Merritt L, 1522, gestation of Center [address] [place] [address], , [facility], 120, Center [id number], Kulwinder, [facility] 120, [place] Kulwinder COOL, tel:[phone] [place], , [place]. [id number]. tel: tel:[phone] Emilie [place]es Encntr screen for Feb-0 Merritt Referring In Womens infections w sexl 5-201 Stella. Provider: Jose OAKES, mode of 8 700 Stella PO Box transmissEncounte Sweetie Bang L, 1522, r for screening Center [address] [place] [address], for oth Dr [facility], infec/parastc 120, Center [id number], diseasesEncounter Kulwinder, [facility] 120, [place] for suprvsn of Kulwinder COOL, tel:[phone] , [phone] [place], first , [place]. [id number]. 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 Provider: Jose OAKES, (routine) w/o abn 7 700 Stella PO Box findingsPap Smear Medical Merritt L, 1522, Screening, Center 700 Wai, CervixEncsam [place]auffman, [facility], for removal of 120, Center [id number], intrauterine Kulwinder, [facility] 120, [place] contraceptive Kulwinder COOL, tel:[phone] [place], , [place]. [id number]. tel: tel:[phone] [place]es Encounter for Aug-2 Merritt Referring In Womens routine checking 6-201 Stella. Provider: Jose OAKES, of intrauterine 6 700 Stella PO Box contracep dev Sweetie Bang L, 1522, Center [address] Dr Wai, [facility], 120, Olin [id number], Kulwinder [facility] 120, [place] Kulwinder COOL, tel:[phone] [place], , [place]. [id number]. tel: tel:[phone] [place]es Encounter for Mar-2 Liang Referring In Womens routine checking 8-201 Elina. Provider: Jose OAKES, of intrauterine 6 700 Stella PO Box contracep dev Sweetie Bang L, 1522, Center [address] Dr Wai, [facility], 120, Olin [id number], Kulwinder [facility] 120, [place] Kulwinder COOL, tel:[phone] [place], , [place]. [id number]. tel: tel:[phone] [place]es Encounter for Mar-2 Liang Referring In Womens Ultrasound insertion of 8-201 Elina. Provider: Jose OAKES, intrauterine 6 700 Stella PO Box contraceptive Sweetie Bang L, 1522, device Center [address] Dr Wai, [facility], 120, Olin [id number], Kulwinder [facility] 120, [place] Kulwinder COOL, tel:[phone] [place], , [place]. [id number]. tel: tel:[phone] Miramontes Encounter for Mar-2 Liang Referring In Womens insertion of 2-201 Elina. Provider: Jose OAKES, intrauterine 6 700 Stella PO Box contraceptive Medical Merritt L, 1522, device Center [address] Dr Wai, [facility] [place], 120, Center [id number], [facility] 120, Kulwinder COOL, tel:[phone] [place], , . [id number]. tel: tel:[phone] Emilie Miramontes Merritt Referring In Womens 5-201 Stella. Provider: Jose OAKES, 5 700 Stella PO Box Medical Merritt L, 1522, Center [address] Dr Wai, [facility] [place], 120, Center [id number], [facility] 120, Kulwinder CO[place], tel:[phone] [place], , . [id number]. tel: tel:[phone] Emilie Miramontes Merritt Referring In Womens 4-201 Stella. Provider: Jose OAKES, 4 700 Stella PO Box Medical Merritt L, 1522, Center [facility] Dr Wai, [facility] [place], 120, Center [id number], [facility] 120, Kulwinder CO[place], tel:[phone] [place], , . [id number]. tel: tel:[phone] Emilie Miramontes Jun-0 Liang In Womens 1-200 Elina. Jose OAKES, 8 700 PO Box Medical 1522, [place] Dr Wai, [facility] [place], 120, [id number], Kulwinder, [place], tel:[phone] , . tel: [phone] Family History Family Member Diagnosis Age At [...] name Insurance type Covered republican ID Authorization(s) [place] [id number] [place] [id number] [place] [id number] Social History Type Description Quantity Date Captured [...] Future Order: Radiology Order Ultrasound OB Follow-up (24252) Ordered Future Order: Radiology Order Pelvic Ultrasound ([id number]) Ordered Future Order: Radiology Order Complete OB Ultrasound > 14 Weeks Ordered ([id number]) Date Type Problem Goal Intervention Status Start [...]
--- OUTSIDE RECORDS SUMMARY | 2018-07-13 06:16 | External Medical Summary | Continuity of Care Document ---
:1988 Author Organization [facility] Allergies Active Description Code Type Severity Reaction Onset Reported/ Identified Relationship Clinical to Patient Status Yes No Known 11287 3 N/A N/A Drug 0 Allergies Yes No Known Aller Unknown N/A 01/20/2013 Drug gy Allergies Medications Medication Packaging Start Date Stop Date Route Dosage Sig 02/02/2015 PO 800 mg Ibuprofen Q8HMC 02/02/2015 PO 1 each Hydrocodon-Aceta Q4H minophen 5-325 Unspecified 03/23/2015 MIRENA 7 DIRECTED Milliliter 12/22/2017 take 1 tablet VITAMINS by oral route every day Problems Date Dx Attending Type Code Diagnosis Diagnosed By Coded 02/12/2016 Elina Liang Z30.430 Encounter for J insertion of intrauterine contraceptive device 07/04/2016 SWEAT PA, GAETANO Ot N39.0 URINARY TRACT L INFECTION, SITE NOT SPECIF 07/17/2016 SWEAT PA, AGETANO Ot N39.0 URINARY TRACT L INFECTION, SITE NOT SPECIF 07/17/2016 SWEAT PA, GAETANO Ot N39.0 URINARY TRACT L INFECTION, SITE NOT SPECIF 08/06/2016 SWEAT PA, GAETANO Ot N39.0 URINARY TRACT L INFECTION, SITE NOT SPECIF 03/02/2018 Stella Bang Z34.82 Encounter for L suprvsn of normal , second trimester 03/02/2018 Stella Bang Z3A.20 20 weeks gestation L of 04/27/2018 Stella Bang O44.22 Partial Placenta L Previa Nos Or W/out Hemorrhage, Second Trimester 04/27/2018 Stella Bang Z3A.28 28 weeks gestation L of 04/30/2018 Stella Bang O99.810 Abnormal glucose L complicating Procedures Code [place] [address] Ultrasnd 02/12/2016 exam of pelvis,complete 36649 Ultrasnd 03/02/2018 exam of preg uterus, compl 50597 Ultrasnd 04/27/2018 preg uterus, flwup/repeat 63507 Venpnctr 04/29/2018 fngr/heel/ear stick routne 86039 Glucose 04/29/2018 tolerance test (GTT) 50574 GTT-added 04/29/2018 samples Results There is no data. Encounters ACCT No. Visit Discharge Status Pt. Type Provider Facility Loc./Unit Complaint Date/Time [id number] 07/06/2018 07/06/2018 CLS Outpatient Merritt, 11:15:00 23:59:59 Stella L [id number] 06/29/2018 06/29/2018 CLS Outpatient Merritt, 11:30:00 23:59:59 Stella L [id number] 06/22/2018 06/22/2018 CLS Outpatient Merritt, 11:15:00 23:59:59 Stella L [id number] 06/08/2018 06/08/2018 CLS Outpatient Merritt, 15:00:00 23:59:59 Stella L [id number] 05/25/2018 05/25/2018 CLS Outpatient Merritt, 15:00:00 23:59:59 Stella L [id number] 05/11/2018 05/11/2018 CLS Outpatient Merritt, 13:30:00 23:59:59 Stella L [id number] 04/30/2018 04/30/2018 CLS Outpatient Merritt, 09:19:00 23:59:59 Stella L [id number] 04/29/2018 04/29/2018 CLS Outpatient Merritt, 10:48:00 23:59:59 Stella L [id number] 04/28/2018 04/28/2018 CLS Outpatient Merritt, 10:51:00 23:59:59 Stella L [id number] 04/27/2018 04/27/2018 CLS Outpatient Merritt, 10:55:00 23:59:59 Stella L [id number] 04/27/2018 04/27/2018 CLS Outpatient Merritt, 10:15:00 23:59:59 Stella L [id number] 04/03/2018 04/03/2018 CLS Outpatient Merritt, 14:40:00 23:59:59 Stella L [id number] 03/02/2018 03/02/2018 CLS Outpatient Merritt, 16:00:00 23:59:59 Stella L [id number] 03/02/2018 03/02/2018 CLS Outpatient Merritt, 15:45:00 23:59:59 Stella L [id number] 01/22/2018 01/22/2018 CLS Outpatient Merritt, 10:12:00 23:59:59 Stella L [id number] 01/19/2018 01/19/2018 CLS Outpatient Merritt, 09:45:00 23:59:59 Stella L [id number] 12/22/2017 12/22/2017 CLS Outpatient Merritt, 10:00:00 23:59:59 Stella L [id number] 08/15/2017 08/15/2017 CLS Outpatient Issa, 14:04:00 23:59:59 Yazmin [id number] 08/11/2017 08/11/2017 CLS Outpatient Issa, 11:00:00 23:59:59 Yazmin [id number] 11/26/2016 11/26/2016 CLS Outpatient Merritt, 10:10:00 23:59:59 Stella L [id number] 07/12/2016 07/12/2016 CLS Outpatient Merritt, 09:30:00 23:59:59 Stella L [id number] 07/11/2016 07/11/2016 CLS Outpatient Merritt, 10:00:00 23:59:59 Stella L [id number] 07/02/2016 07/02/2016 CLS Outpatient Liang, 15:20:00 23:59:59 Elina Delvalle [id number] 02/12/2016 02/12/2016 CLS Outpatient Liang, 11:00:00 23:59:59 Elina Delvalle [id number] 02/12/2016 02/12/2016 CLS Outpatient Liang, 10:15:00 23:59:59 Elina Delvalle [id number] 02/06/2016 02/06/2016 CLS Outpatient Liang, 11:30:00 23:59:59 Elina Delvalle [id number] 02/05/2016 02/05/2016 CLS Outpatient Merritt, 16:24:00 23:59:59 Stella L [id number] 08/11/2017 Document 11:43:45 Registratio n [id number] 07/01/2016 07/01/2016 CLS Outpatient Grace [facility] [id number] 19:34:00 23:59:59 [facility] [id number] 07/13/2018 ACT Inpatient [facility] / [id number] 06:06:00 , Medical induction STELLA Wright Ira
--- OUTSIDE RECORDS SUMMARY | 2018-07-13 06:16 | External Medical Summary | Continuity of Care Document ---
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 Jose OAKES, 8 700 PO Box Medical 1522, Center Wai, , [facility] [place], 120, [id number], [place], [place], tel:+ [phone] , [place]. tel: [phone] Associates Kulwinder Encounter for Mar-0 Merritt Referring In Womens suprvsn of normal 5-201 Stella. Provider: Jose OAKES, , second 8 700 Stella PO Box [id number] weeks Medical Merritt L, 1522, gestation of Center [address] [place] [address], , [facility], 120, Center [id number], Kulwinder [facility] 120, [place] Kulwinder COOL, tel:+ [phone] [place], , [place]. [id number]. tel: tel:+ [phone] Associates [facility] Encntr screen for Feb-0 Merritt Referring In Womens infections w sexl 5-201 Stella. Provider: Jose OAKES, mode of 8 700 Stella PO Box transmissEncounte Medical Merritt L, 1522, r for screening Center [address] [place] [address], for oth , [facility], infec/parastc 120, [place] [id number], diseasesEncounter [facility], [place] for suprvsn of Kulwinder COOL, tel:+ [phone] , [phone] [place], first , [place]. [id number]. 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 Provider: Jose OAKES, (routine) w/o abn 7 700 Stella PO Box findingsPap Smear Medical Merritt L, 1522, Screening, [address], CervixEncounter , [facility], for removal of 120, [place] [id number], intrauterine Kulwinder [facility] 120, [place] contraceptive Kulwinder COOL, tel:[phone] [place], , [place]. [id number]. tel: tel:[phone] Miramontes Encounter for Aug-2 Merritt Referring In Womens routine checking 6-201 Stella. Provider: Jose OAKES, of intrauterine 6 700 Stella PO Box contracep dev Medical Merritt L, 1522, Center [address], [facility] [place], 120, Center [id number], Kulwinder, [facility] 120, [place] Kulwinder COOL, tel:[phone] [place], , [place]. [id number]. tel: tel:[phone] [place]ontes Encounter for Mar-2 Liang Referring In Womens routine checking 8-201 Elina. Provider: Jose OAKES, of intrauterine 6 700 Stella PO Box contracep dev Medical Merritt L, 1522, Center [address], [facility], 120, Center [id number], Kulwinder [facility] 120, [place] Kulwinder COOL, tel:[phone] [place], , [place]. [id number]. tel: tel:[phone] Miramontes Encounter for Mar-2 Liang Referring In Womens Ultrasound insertion of 8-201 Elina. Provider: Jose OAKES, intrauterine 6 700 Stella PO Box contraceptive Medical Merritt L, 1522, device Center [address], [facility], 120, Center [id number], Kulwinder [facility] 120, [place] Kulwinder COOL, tel:[phone] [place], , [place]. [id number]. tel: tel:[phone] Miramontes Encounter for Mar-2 Liang Referring In Womens insertion of 2-201 Elina. Provider: Jose OAKES, intrauterine 6 700 Stella PO Box contraceptive Medical Merritt L, 1522, device Center [address] Dr Wai, [facility], 120, Center [id number], Kulwinder [facility] 120, [place] Kulwinder COOL, tel:[phone] [place], , [place]. [id number]. tel: tel:[phone] Miramontes Feb-2 Merritt Referring In Womens 5-201 Stella. Provider: Jose OAKES, 5 700 Stella Box Medical Merritt L, 1522, Center [address] Dr [address], [facility] [place], 120, Center [id number], Kulwinder, [facility] 120, Kulwinder COOL, tel:[phone] [place], , . [id number]. tel: tel:[phone] Associates Kulwinder Merritt Referring In Womens 4-201 Stella. Provider: Jose OAKES, 4 700 Stella Box Medical Merritt L, 1522, Center [address] Dr W[address], [facility] [place], 120, Center [id number], Kulwinder, [facility] 120, Kulwinder COOL, tel:[phone] [place], , . [id number]. tel: tel:[phone] Associates Kulwinder Jun-0 Liang In Womens 1-200 Elina. Health CHAMP, 8 700 [facility] Medical 1522, [place] Dr Wai, [facility] [place], 120, [id number], [place], [place], tel:[phone] , [place]. tel: [phone] Family History Family Member Diagnosis Age At [...] name Insurance type Covered democrat ID Authorization(s) [facility] [place] [id number] [facility] [place] [id number] [facility] [place] [id number] Social History Type Description Quantity Date Captured [...] BOOKED Future Order: Radiology Order Pelvic Ultrasound ([id number]) Ordered Date Type Problem Goal Intervention Status [...]
--- OUTSIDE RECORDS SUMMARY | 2018-07-13 06:16 | External Medical Summary | Continuity of Care Document ---
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 Health CHAMP, 7 700 PO Box Medical [address] [address] Wai, [facility] [place], 120, [id number], Kulwinder, [place], tel:[phone] , [place]. 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 Provider: Health CHAMP, (routine) w/o 7 700 Stella PO Box 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Pap Medical Merritt L, 1522, Smear Screening, Center 700 Wai, CervixEncsam Kauffman, [facility], for removal of 120, Center [id number], intrauterine Kulwinder, [facility] 120, [place] contraceptive Kulwinder COOL, tel:[phone] [place], , [place]. [id number]. tel: tel:[phone] [place] Encounter for Aug-2 Merritt Referring In Womens routine checking 6-201 Stella. Provider: Jose OAKES, of intrauterine 6 700 Stella PO Box contracep dev Medical Merritt L, 1522, Center [address] Dr Wai, [facility], 120, Center [id number], Kulwinder [facility] 120, [place] Kulwinder COOL, tel:[phone] [place], , [place]. [id number]. tel: tel:[phone] [place]es Encounter for Mar-2 Liang Referring In Womens routine checking 8-201 Elina. Provider: Jose OAKES, of intrauterine 6 700 Stella PO Box contracep dev Medical Merritt L, 1522, Center [address] Dr Wai, [facility], 120, [place] [id number], Kulwinder [facility] 120, [place] Kulwinder COOL, tel:[phone] [place], , [place]. [id number]. tel: tel:[phone] [place] Encounter for Mar-2 Liang Referring In Womens Ultrasound insertion of 8-201 Elina. Provider: Jose OAKES, intrauterine 6 700 Stella PO Box contraceptive Medical Merritt L, 1522, device Center [address] Dr Wai, [facility], 120, [place] [id number], Kulwinder [facility] 120, [place] Kulwinder COOL, tel:[phone] [place], , [place]. [id number]. tel: tel:[phone] [place]es Encounter for Mar-2 Liang Referring In Womens insertion of 2-201 Elina. Provider: Jose OAKES, intrauterine 6 700 Stella PO Box contraceptive Medical Merritt L, 1522, device Center [address] Dr Wai, [facility], 120, Center [id number], Kulwidner, [facility] 120, Kulwinder COOL, tel:[phone] [place], , . [id number]. tel: tel:[phone] Emilie [place]ontes Merritt Referring In Womens 5-201 Stella. Provider: Health CHAMP, 5 700 Stella PO Box Medical Merritt L, 1522, Center [facility] Dr Wai, [facility] [place], 120, Center [id number], Kulwinder, [facility] 120, [place], Kulwinder, tel:[phone] [place], , . [id number]. tel: tel:[phone] Emilie [place]ontes Merritt Referring In Womens 4-201 Stella. Provider: Health CHAMP, 4 700 Stella PO Box Medical Merritt L, 1522, Center [facility] Dr Wai, [facility], 120, Center [id number], [facility], Kulwinder COOL, tel:[phone] [place], , . [id number]. tel: tel:[phone] Emilie [place]ontes Jun-0 Liang In Womens 1-200 Elina. Health [facility], 8 700 PO Box Medical 1522, [place] Dr Wai, [facility] [place], 120, [id number], Kulwinder, [place], tel:[phone] , [place]. tel: [phone] Family History Family Member Diagnosis Age At [...] Insurance type Covered green party ID Authorization(s) [facility] [id number] [facility] [id number] [facility] [id number] Social History Type Description Quantity Date Captured [...] Status Future Order: Radiology Order Pelvic Ultrasound ([id number]) Ordered Date Type Problem Goal Intervention Status [...]
[2018-07-13] MEDS: LR 1,000 ML IV PRN ×2 (06:30→08:18)
[2018-07-13 06:35] VITALS: BMI 30.4
[2018-07-13] MEDS ORDERED: ROPIVACAINE 1% 10MG/ML INJ 200 MG, SUFentanil 50 MCG in NS 100 ML EPI PRN (11:42)
[2018-07-13] MEDS ORDERED: ONDANSETRON 4 MG/2 ML INJECTION IVP PRN (11:42)
[2018-07-13] MEDS ORDERED: DiphenhydrAMINE 50 MG/ML INJECTION IVP PRN (11:42)
[2018-07-13] MEDS ORDERED: NALOXONE 0.4 MG/ML INJECTION IVP PRN (11:42)
--- NOTE | 2018-07-13 11:43 | Anesthesia Preoperative Report ---
Anesthesia Epidural/Spinal Rec - Date and Time Date: 07/13/18 Preoperative Diagnosis: term induction Procedure: Labor Epidural Plan: Epidural - Vital Signs Vital Signs: Temperature 98.1 F 07/13/18 06:15 Pulse Rate 91 07/13/18 06:15 Respiratory Rate 18 07/13/18 06:15 Blood Pressure 121/71 07/13/18 06:15 Pulse Oximetry 98 07/13/18 06:15 /Para: P:2 - Medictaions & Allergies Inpatient Medications: Current Medications Acetaminophen (Tylenol) 500 - 1,000 mg PO Q4H PRN PRN Reason: Pain Al Hydroxide/Mg Hydroxide (Maalox Plus) 30 ml PO Q3H PRN PRN Reason: Indigestion Calcium Carbonate (Tums) 500 - 1,000 mg PO Q2H PRN PRN Reason: Indigestion Carboprost Tromethamine (Hemabate) 250 mcg IM O PRN PRN Reason: .Downtime Dextrose/Lactated Ringer's (Dextrose 5%-Lactated Ringers) 1,000 mls @ 125 mls/ hr IV .Q8H PRN PRN Reason: Labor Last Admin: 07/13/18 06:41 Dose: 125 mls/hr Lactated Ringer's (Lactated Ringers) 1,000 mls @ 999 mls/hr IV .Q1H1M PRN Last Admin: 07/13/18 08:18 Dose: 999 mls/hr Oxytocin (Pitocin Drip) 30 unit in 500 mls @ 2 mls/hr IV .Q24H PRN; Protocol PRN Reason: Induction/Augmentation Last Admin: 07/13/18 06:42 Dose: 2 mls/hr Lidocaine HCl (Xylocaine-Mpf 1% Vial) 0.2 mg ID O PRN PRN Reason: IV Start Methylergonovine Maleate (Methergine) 0.2 mg IM O PRN Misoprostol (Cytotec) 800 mcg TX ONCE PRN Sodium Chloride (Iv Flush) 10 - 80 ml IV PRN PRN PRN Reason: Flushing Allergies/Adverse Reactions: Allergies Allergy/AdvReac Type Severity Reaction Status Date / Time No Known Drug Allergies Allergy Verified 01/20/13 14:42 - Home Medications Home Medications: Home Medications Medication Instructions Recorded Confirmed Type Vits W-Ca,Fe,Fa(<1MG) 1 tab PO DAILY #0 01/20/13 07/13/18 History ( Vitamins) raNITIdine HCl [Zantac 75] 75 mg PO PRN PRN 07/13/18 07/13/18 History - Medical History Respiratory: DENIES: Asthma, Bronchitis, Chronic Obstructive Pulmonary Disease (COPD), Dyspnea, Orthopnea, Pulmonary Embolism, Pneumonia, Upper Respiratory Infection, Pulmonary Edema, Sleep Apnea, Tuberculosis, Other Cardiovascular: DENIES: Abnormal EKG, Angina, Arrhythmia, Congestive Heart Failure, Coronary Artery Disease, Heart Murmur, Hypertension, Hypotension, High Cholesterol, Myocardial Infarction, Rheumatic Fever, Valvular Heart Disease, Other Gastrointestional: DENIES: Obstructive Bowel, Hepatitis, Cirrhosis, Nausea or Vomiting Present, Gastroesophageal Reflux Disease, Gastrointestinal Bleeding, Hiatal Hernia, Ulcer , Morbid Obesity, Other Neuro/Musculoskeletal: Denies: Back Problems, Cerebrovascular Accident, Depression, Headaches, Loss of Consciousness, Muscle Weakness, Neuromuscular Disorder, Paralysis, Paresthesia, Syncope, Seizures, Other Renal/Endocrine: DENIES: Diabetes Mellitus Type 1, Diabetes Mellitus Type 2, Renal Failure, Dialysis, Thyroid Disease, Weight Loss, Weight Gain, Other Other History: Reports: Now - Surgical History Reproductive Surgery/Treatment: DENIES: Section Anesthesia Reactions: None Hx Family Anesthesia Reaction: No History of Motion Sickness: No - Social History Smoking Status: Never smoker Second Hand Exposure: No Substance Use Type: does not use Alcohol Intake: never Alcohol Intake Frequency: does not drink - Pertinent Findings Lab Data: CBC and BMP 07/13/18 06:25 - Physical Exam Respiratory Exam: lungs clear, bilateral breath sounds equal Cardiovascular Exam: regular rate and rhythm, no murmur - Airway Assessment Mallampati Score: I TMD: 3 Fingerbreadths Neck Extension: good Overall Assessment: may be difficult intubation - ASA ASA Score: 2 - Discussion Discussion: Discussed risks/options/alternatives of anesthesia and questions answered. Patient consents. Nursing pain assessment noted. Anesthesia Discussion: spouse Attestation Statement: Prior to the delivery of any anesthetic medication, I examined the patient, developed the plan, obtained the patient's consent and discussed the risk and benefits of the procedure with the patient/guardian.
[2018-07-13] MEDS ORDERED: DiphenhydrAMINE 25 MG CAPSULE PO PRN (15:06)
[2018-07-13] MEDS ORDERED: HYDROCORTISONE 2.5% CREAM 30gm RECTALLY PRN (15:06)
[2018-07-13] MEDS ORDERED: HYDROCODONE/APAP 5mg/325mg TABLET PO PRN (15:06)
[2018-07-13] MEDS: IBUPROFEN 800 MG TABLET PO PRN ×2 (16:27→23:45)
--- NOTE | 2018-07-13 17:11 | Labor and Delivery Note ---
DATE OF DELIVERY 07/13/2018 Ms. Flannery began to push with excellent effort at the complete and +2 position. She pushed for a short time, delivering the head in the OA position. There was a tight nuchal cord x 1 that I could not reduce. It was doubly clamped and cut. Baby was bulb suctioned on the perineum. With a further push the baby was not forthcoming. We performed Nimesh maneuver and the patient pushed very well and the anterior shoulder delivered followed by the posterior shoulder. Baby was completely delivered and further bulb suctioned. He was given to the nurses for care. This is a liveborn male weighing 9 pounds, 3.9 ounces with Apgars of 7/8/8. The placenta subsequently delivered spontaneously intact. It had a normal configuration and normal-appearing three-vessel cord. There was a second-degree midline laceration that was repaired in the usual fashion with 2-0 Vicryl. Total blood loss was approximately 400 mL. At the time of this dictation mother is doing well. Baby is on special care with CPAP. TORY
[2018-07-13] MEDS: ACETAMINOPHEN 500 MG TABLET PO PRN (18:35)
[2018-07-14] MEDS: ACETAMINOPHEN 500 MG TABLET PO PRN ×2 (05:41→13:37)
[2018-07-14] MEDS: IBUPROFEN 800 MG TABLET PO PRN ×2 (08:21→18:50)
[2018-07-14] MEDS: DOCUSATE CALCIUM 240 MG CAPSULE PO SCH ×2 (08:40→13:51)
--- NOTE | 2018-07-14 09:37 | OB/GYN Progress Note ---
OB-PP Progress Note - General PPD1 Maternal Group B Strep: Negative Maternal Rh: positive Maternal Rubella Status: Immune - Subjective Date: 07/14/18 Lochia: Minimal Pain: controlled Voiding: voiding Nausea or Vomiting Present: No - Objective Vital Signs: Last Vital Signs Temp 97.9 F 07/14/18 05:45 Pulse 74 07/14/18 05:45 Resp 16 07/14/18 05:45 BP 112/66 07/14/18 05:45 Pulse Ox 98 07/13/18 21:56 Urine Output: good General: alert and oriented Abdomen: fundus firm, non-tender Extremities: non-tender Side: bilateral Site: ankle Edema Degree: 1+ - Assessment Assessment: SP, - Plan Plan: routine care Expected date of discharge: 07/15/18 Considering dismissal to Boarding status this evening.
[2018-07-14] MEDS: PRENATAL VITAMIN TABLET PO SCH (13:50)
--- NOTE | 2018-07-14 14:53 | Anesthesia Postoperative Note ---
- Date and Time Date: 07/14/18 Time: 14:50 - Status Patient Participated in Evaluation: Patient Participated in Person Vital Signs: Temperature 98.3 F 07/14/18 11:30 Pulse Rate 67 07/14/18 11:30 Respiratory Rate 16 07/14/18 11:30 Blood Pressure 104/69 07/14/18 11:30 Pulse Oximetry 97 07/14/18 11:30 Respiratory Function: Airway Patent, Regular Respirations Cardiovascular Function: Regular Pulse Mental Status: Alert and Oriented Pain Intensity: 0 Hydration: Taking PO Fluids Nausea/Vomiting: None Complications During Recover: None Apparent Post Anesthesia Care Notes: ambulatory without problems. Eleni Easton CRNA - Follow-Up Instructions Instructions: Per Surgeon
[2018-07-15] MEDS: IBUPROFEN 800 MG TABLET PO PRN ×2 (05:19→12:37)
[2018-07-15 05:43] VITALS: RESP 16
[2018-07-15] MEDS: PRENATAL VITAMIN TABLET PO SCH (12:36)
[2018-07-15] MEDS: DOCUSATE CALCIUM 240 MG CAPSULE PO SCH (12:36)
[2018-07-15 22:07] VITALS: BP 116/69; PULSE 63; TEMP 97.8; O2SAT 100
== END 2018-07-15 18:35 | disposition home or self-care (01) | DRG 775 ==
LOC: MC 06:06
PROVIDERS: ADMIT Obstetrics & Gynecology; ATTEND Obstetrics & Gynecology